=== PATIENT | female | born 1980 | race Caucasian/White ===

== ENCOUNTER 2020-02-11 01:31 | Day surgery (SDC) | payer OTHER, SELFPAY ==
[2020-02-09 08:54] VITALS: BMI 41.5
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
[2020-02-11] VITALS (8 sets, daily range): BP systolic 93–143; BP diastolic 51–86; PULSE 68–86; RESP 12–20; TEMP 36.4–36.9; O2SAT 93–100
[2020-02-11] MEDS: LACTATED RINGERS 1,000 ML 30 ML IV CONT (07:50)
[2020-02-11 08:00] LABS: Hematocrit 40.2 % (37.0-47.0); Hemoglobin 13.1 g/dL (12.0-15.0); Mean Corpuscular HGB Conc 32.6 g/dl (32-36); Mean Corpuscular Hemoglobin 28.1 pg (26-34); Mean Corpuscular Volume 86.3 fl (80-100); Mean Platelet Volume 10.3 fl (7.4-10.4); Platelet Count Result 316 k/mm3 (150-375); Red Blood Count 4.66 M/mm3 (4.2-5.4); Red Cell Distribution Width 13.4 % (11.5-14.5); White Blood Count 10.3 K/mm3 (4.5-10.0)
[2020-02-11 08:13] LABS: Alanine Aminotransferase 17 U/L (4-35); Albumin Level 4.2 g/dL (3.5-5.1); Alkaline Phosphatase 66 U/L (38-126); Aspartate Amino Transferase 22 U/L (14-36); Bilirubin,Total 0.4 mg/dL (0.2-1.3); Blood Urea Nitrogen 20 mg/dL (7-17); Calcium 9.6 mg/dL (8.4-10.2); Carbon Dioxide 30 mmol/L (22-30); Chloride 101 mmol/L (98-107); Estimated CRCL calculation 118 ml/min; Estimated Glomerular Filt Rate > 60; Glucose 96 mg/dL (65-105); Potassium 3.6 mmol/L (3.4-5.0); Sodium 137 mmol/L (137-145)
--- NOTE | 2020-02-11 09:00 | WPDHPUPDATE1 ---
History and Physical Update Update Date/Time: 02/11/20 09:00 History and Physical has been reviewed, including an updated exam of the patient. There are NO changes in the patient's condition. Risks, benefits, and alternatives of Excision of anal skin tag and external hemmorrhoid have been discussed and questions answered. Patient agrees to proceed with procedure.
[2020-02-11] MEDS: ceFAZolin 2 GM/D5W 50 ML 2 GM/50 ML BAG IVPB (09:07)
[2020-02-11] MEDS: BUPIVACAINE/EPINEPHRINE 0.5% 30 ML VIAL INFILTRATE (09:31)
--- NOTE | 2020-02-11 09:59 | P.OP_ITS ---
Procedure Note - Detailed Date of procedure: 02/11/20 Pre-op diagnosis: Anal Skin Tag and Anal Polyp Post-op diagnosis: same Procedure performed: Excision of anal polyp and anal skin tag anterior position Description of procedure: After induction of adequate LMA general anesthesia the patient was rolled onto her right side. The right leg was positioned straight the left leg position bent and we carefully taped the buttocks open such that I could see the anterior part of the anal opening very well. Following this Betadine prep was completed. Following this time-out was confirmed of possible surgery and site of surgery being the anal area. Following this 4 towels were placed around the area a appropriate drape was applied and then in the sitting position with the head light and use I carefully inspected the anal opening the external anal exam there was mild the external hemorrhoids in the left lateral position right anterior position but no other changes small rectal retractor was inserted careful examination all 4 quadrants revealed no significant internal hemorrhoids. Following this the retractor was positioned such that I could see well the anterior edge of the anal opening the enlarged anal tag and the, anal polyp were identified anal polyp coming off the internal portion of anal tag. Local anesthetic was infiltrated underneath both of these an elliptical excision performed. Bovie cautery was used for hemostas is and we undermined the the skin a little bit on each side. Following this a running 3 0 Vicryl suture was started at the innermost and does the incision with an of a run taking every other by taking a little bit of the deep tissues as we ran the skin back to approximate it. This gave a nice linear incision site with the mucosa reapproximated. There was no significant bleeding at the end the procedure. Small piece of Gelfoam was taken soaked with local anesthetic and then rolled and plate position at the anal opening and a folded fluff applied a after releasing the buttocks. Patient tolerated the procedure very well. Patient was moved onto recovery room cart moved to recovery room in good condition. Estimated blood loss approximately 5 cc. Anesthesia: GLMA Surgeon: Patrick Agudelo MD Electronic Court Recorder: ANNE Xavier, OR 1st assist Estimated blood loss (mL): 5 Drains: No Packing: No Pathology: yes (Anal area skin sent for pathology (suspected anal polyp).) Complications: No immediate complications Condition: stable Disposition: PACU Findings: Non inflamed anal skin tag anteriorly with an associated anal polyp.
--- NOTE | 2020-02-11 10:21 | SUR.PHASEI ---
1020 lying to right side for comfort.
== END 2020-02-11 11:55 | disposition home or self-care (01) ==
PROVIDERS: PCP Family Medicine; Visit Provider Surgery
PROC: (CPT 46922; principal; 2020-02-11 09:00)
DX: K62.1 Rectal polyp (principal); K64.4 Residual hemorrhoidal skin tags; I10 Essential (primary) hypertension; G47.33 Obstructive sleep apnea (adult) (pediatric); E66.01 Morbid (severe) obesity due to excess calories; Z68.41 Body mass index [BMI] 40.0-44.9, adult
CPT/HCPCS: 46922; 36415; 80053; 85027; 88305; A9270; J0690; J1100; J2250; J2405; J2704; J3010; J7120

== ENCOUNTER 2020-07-29 14:45 | Outpatient (RCR) | payer OTHER, SELFPAY ==
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
== END 2020-08-08 11:53 | disposition home or self-care (01) ==
LOC: ANHPT 14:45
PROVIDERS: PCP Family Medicine
DX: Z47.1 Aftercare following joint replacement surgery (principal); Z96.642 Presence of left artificial hip joint
CPT/HCPCS: 97110; 97112; 97140; 97162; 97530

== ENCOUNTER 2020-09-15 15:30 | Outpatient (RCR) | payer OTHER, SELFPAY ==
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
== END 2020-09-16 12:20 | disposition home or self-care (01) ==
LOC: ANHPT 15:30
PROVIDERS: PCP Family Medicine
DX: Z47.1 Aftercare following joint replacement surgery (principal); Z96.642 Presence of left artificial hip joint; M25.561 Pain in right knee; M25.562 Pain in left knee
CPT/HCPCS: 97110; 97112; 97140; 97530

== ENCOUNTER → 2020-09-21 16:18 | Outpatient (CLI) | payer OTHER, SELFPAY ==
--- NOTE | ~2020-09-21 | XR_ITS ---
EXAMINATION: XR foot RT min 3V DATE: 09/21/2020 16:47 INDICATION: Right foot pain. TECHNIQUE: 4 views of right foot were obtained. COMPARISON: Right foot radiographs 11/04/2015 FINDINGS: Bone alignment is normal. No fracture. There is mild osteoarthritis of first metatarsophala ngeal joint and some of the midfoot joints. There are enthesophytes at the posterior and plantar aspe cts of calcaneal tuberosity. IMPRESSION: 1. Mild polyarticular osteoarthritis. Reviewed, dictated and finalized at location A.
== END ==
PROVIDERS: PCP Family Medicine; Visit Provider Nurse Practitioner Family
DX: M19.071 Primary osteoarthritis, right ankle and foot (principal); R26.89 Other abnormalities of gait and mobility
CPT/HCPCS: 73630

== ENCOUNTER 2021-05-24 18:12 | Emergency (ER) | payer OTHER, SELFPAY ==
--- NOTE | ~2021-05-24 | XR_ITS ---
EXAMINATION: XR chest 1V portable EXAM DATE: 05/24/2021 18:53 INDICATION: Cough, burning nose, drainage. Lightheadedness. Hypertension. Symptoms a week. TECHNIQUE: Portable AP frontal chest x-ray was obtained. Comparison is made to prior examination from 12/05/2015. FINDINGS: The lungs are clear. There are no pleural effusions. The cardiomediastinal silhouette is within normal limits. There is no pneumothorax suspected. The bones and soft tissues are unremarkab le. IMPRESSION: No acute cardiopulmonary findings. Reviewed, dictated and finalized at location A.
[2021-05-24 18:29] VITALS: BP 149/85; PULSE 112; RESP 12; TEMP 37.3; O2SAT 99
[2021-05-24 18:49] VITALS: O2SAT 98
[2021-05-24 19:02] VITALS: BP 138/81; PULSE 109; RESP 20; O2SAT 97
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
[2021-05-24 20:09] VITALS: BP 134/85; PULSE 82; RESP 16; TEMP 37.1; O2SAT 98
[2021-05-25 18:05] LABS: SARS-CoV-2 RNA PCR Positive
== END 2021-05-24 20:10 | disposition home or self-care (01) ==
PROVIDERS: Emergency Medicine Emergency Medical Services; Emergency Provider Emergency Medicine; PCP Family Medicine
DX: U07.1 COVID-19 (principal); J06.9 Acute upper respiratory infection, unspecified; I10 Essential (primary) hypertension
CPT/HCPCS: 71045; 99283; C9803; U0003; U0005

== ENCOUNTER 2021-11-11 10:49 | Outpatient (CLI) | payer OTHER, SELFPAY ==
[2021-11-11 12:10] LABS: Free T4 Free Thyroxine 0.84 ng/mL (0.78-2.19)
[2021-11-11 12:14] LABS: Thyroid Stimulating Hormone 0.887 uIU/mL (0.465-4.680)
[2021-11-16 00:43] LABS: Insulin Level Total 16.4 uIU/mL (<=19.6)
[2021-11-16 15:12] LABS: DHEA-Sulfate 51 mcg/dL (23-266)
[2021-11-16 22:46] LABS: Prolactin 8.9 ng/mL (***)
== END 2021-11-11 10:50 | disposition home or self-care (01) ==
LOC: ANHLAB 10:52
PROVIDERS: PCP Family Medicine; Visit Provider Nurse Practitioner
DX: N92.6 Irregular menstruation, unspecified (principal)
CPT/HCPCS: 36415; 82627; 83036; 83525; 84144; 84146; 84402; 84439; 84443

== ENCOUNTER → 2022-01-09 08:11 | Outpatient (CLI) | payer OTHER, SELFPAY ==
--- NOTE | ~2022-01-09 | MMUS_ITS ---
EXAMINATION: MM diagnostic ronald BI w jorge, US breast BI complete HISTORY: Breast pain. TECHNIQUE: Additional 3-D tomosynthesis images of the breasts were performed and synthetic 2-D images were generated. CAD analysis was submitted and interpreted. High resolution bilateral complete breas t ultrasound was performed. COMPARISON: None BREAST PARENCHYMAL COMPOSITION: The breasts are heterogenously dense, which may obscure small masses FINDINGS: MAMMOGRAPHIC FINDINGS: No discrete masses or architectural distortion. There are benign-appearing breast calcifications. The re are probable benign bilateral breast asymmetries. ULTRASOUND: Complete bilateral US of all 4 quadrants of the breasts and retroareolar region was reviewed. Diffuse ly heterogeneous echotexture without focal mass. There are mildly prominent ducts throughout the cassie sts. IMPRESSION: 1. Probable benign asymmetries of both breasts without sonographic correlate. 2. Recommend 6 month follow-up diagnostic bilateral mammogram. BI-RADS category 3, probably benign findings. Reviewed, dictated and finalized at location A. D [employer]IST IMPRESSION: 1. Probable benign asymmetries of both breasts without sonographic correlate. 2. Recommend 6 month follow-up diagnostic bilateral mammogram. BI-RADS category 3, probably benign findings.
== END ==
PROVIDERS: Visit Provider Nurse Practitioner
DX: N64.4 Mastodynia (principal)
CPT/HCPCS: 76641; 77062; 77066; G0279

== ENCOUNTER 2022-04-10 17:03 | Outpatient (CLI) | payer OTHER, SELFPAY ==
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
== END 2022-04-10 17:04 ==
PROVIDERS: PCP Nurse Practitioner Family; Visit Provider Nurse Practitioner Family
DX: M16.12 Unilateral primary osteoarthritis, left hip (principal); Z87.81 Personal history of (healed) traumatic fracture
CPT/HCPCS: 73521

== ENCOUNTER 2022-04-11 07:04 | Outpatient (CLI) | payer OTHER, SELFPAY ==
--- NOTE | ~2022-04-11 | MR_ITS ---
EXAMINATION: MR lumbar spine wo con DATE: 04/11/2022 07:39 INDICATION: Low back pain. Left leg numbness. TECHNIQUE: Magnetic resonance imaging (MRI) of the lumbar spine was performed without intravenous con trast. Sequences included sagittal T2-weighted FSE, sagittal T2-weighted FS FSE, sagittal T1-weighted FSE, and axial T2-weighted FSE. COMPARISON: Lumbar spine radiographs 10/17/2018 FINDINGS: There is 4 degrees dextrocurvature of lumbar spine. There is mild chronic anterior wedging of T12 vertebral body. Intervertebral disc heights are normal. At T11, there is increased T2-weighted signal intensity in the spinal cord posteriorly. The conus medullaris is at L2. The following disc l evels are specifically discussed: L1-L2: The disc does not extend beyond the endplate margin. There is mild bilateral facet joint osteo arthritis. There is no neural foraminal stenosis. There is no central canal stenosis. L2-L3: The disc does not extend beyond the endplate margin. There is mild bilateral facet joint osteo arthritis. There is no neural foraminal stenosis. There is no central canal stenosis. L3-L4: The disc does not extend beyond the endplate margin. There is mild bilateral facet joint osteo arthritis. There is no neural foraminal stenosis. There is no central canal stenosis. L4-L5: There is a right foraminal protrusion. There is severe bilateral facet joint osteoarthritis. T here is mild right neural foraminal stenosis. There is no central canal stenosis. L5-S1: The disc is bulging with superimposed right central extrusion. There is moderate bilateral fac et joint osteoarthritis. There is mild left neural foraminal stenosis. There is mild central canal st enosis. IMPRESSION: 1. Increased T2-weighted signal intensity in the spinal cord at T11 suspicious for myelomalacia. [facility] spine MRI without and with contrast is recommended. 2. Mild lumbar spondylosis. Reviewed, dictated and finalized at location B. IMPRESSION: 1. Increased T2-weighted signal intensity in the spinal cord at T11 suspicious for myelomalacia. Thoracic spine MRI without and with contrast is recommended. 2. Mild lumbar spondylosis.
== END 2022-04-11 07:05 ==
LOC: MICIMG 07:05
PROVIDERS: PCP Family Medicine; Visit Provider Nurse Practitioner Family
DX: R20.2 Paresthesia of skin (principal); M47.896 Other spondylosis, lumbar region
CPT/HCPCS: 72148

== ENCOUNTER 2022-06-07 16:48 | Emergency (ER) | payer OTHER, SELFPAY ==
[2022-06-07 16:59] VITALS: BP 153/103; PULSE 91; RESP 18; TEMP 37.3; O2SAT 99
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
== END 2022-06-07 18:10 | disposition home or self-care (01) ==
PROVIDERS: Emergency Provider Nurse Practitioner; PCP Family Medicine
DX: H66.91 Otitis media, unspecified, right ear (principal); I10 Essential (primary) hypertension; E78.2 Mixed hyperlipidemia; G47.33 Obstructive sleep apnea (adult) (pediatric); E66.01 Morbid (severe) obesity due to excess calories; Z68.42 Body mass index [BMI] 45.0-49.9, adult; Z86.16 Personal history of COVID-19
CPT/HCPCS: 99213; G0463

== ENCOUNTER 2022-06-08 07:17 | Outpatient (CLI) | payer OTHER, SELFPAY ==
--- NOTE | ~2022-06-08 | MR_ITS ---
EXAMINATION: MR brain/brain stem wo con DATE: 06/08/2022 07:57 INDICATION: Demyelination. Bilateral foot numbness. TECHNIQUE: Magnetic resonance imaging (MRI) of the brain and brainstem was performed without intraven ous contrast. COMPARISON: None. FINDINGS: There is no intracranial hemorrhage, acute infarction, or abnormal intracranial mass lesion . The ventricles are normal in size. There is a trace right mastoid effusion. The orbits are normal. The paranasal sinuses are clear. IMPRESSION: 1. Normal brain. Reviewed, dictated and finalized at location A. IMPRESSION: 1. Normal brain.
== END 2022-06-08 07:18 ==
PROVIDERS: PCP Family Medicine; Visit Provider Nurse Practitioner Family
DX: G37.9 Demyelinating disease of central nervous system, unspecified (principal)
CPT/HCPCS: 70551

== ENCOUNTER 2022-09-05 13:32 | Outpatient (CLI) | payer OTHER, SELFPAY ==
--- NOTE | ~2022-09-05 | MR_ITS ---
EXAMINATION: MR brain/brain stem wo/w con DATE: 09/05/2022 14:54 INDICATION: Demyelinating disease. TECHNIQUE: Magnetic resonance imaging (MRI) of the brain and brainstem was performed without and with 20 mL MultiHance intravenous contrast. COMPARISON: Brain MRI 06/08/2022 FINDINGS: There is no intracranial hemorrhage, acute infarction, or abnormal intracranial mass lesion . The ventricles are normal in size. There is mild mucosal thickening in the ethmoid sinuses. The orb its are normal. There is a trace right mastoid effusion. IMPRESSION: 1. Normal brain. Reviewed, dictated and finalized at location A. IMPRESSION: 1. Normal brain.
--- NOTE | ~2022-09-05 | MR_ITS ---
EXAMINATION: MR cervical spine wo/w con DATE: 09/05/2022 14:55 INDICATION: Demyelinating disease. TECHNIQUE: Magnetic resonance imaging (MRI) of the cervical spine was performed without and with 20 m L MultiHance intravenous contrast. COMPARISON: None FINDINGS: There is hypolordosis of cervical spine. Vertebral body heights and intervertebral disc hei ghts are normal. The spinal cord signal intensity is normal. The following disc levels are specifical ly discussed: C2-C3: The disc does not extend beyond the endplate margin. There is mild left uncovertebral joint os teoarthritis. There is mild right and moderate left facet joint osteoarthritis. There is mild left ne ural foraminal stenosis. There is no central canal stenosis. C3-C4: The disc does not extend beyond the endplate margin. There is no uncovertebral joint osteoarth ritis. There is mild bilateral facet joint osteoarthritis. There is no neural foraminal stenosis. The re is no central canal stenosis. C4-C5: There is a central protrusion. There is no uncovertebral joint osteoarthritis. There is no fac et joint osteoarthritis. There is no neural foraminal stenosis. There is mild central canal stenosis. C5-C6: There is a central protrusion. There is no uncovertebral joint osteoarthritis. There is mild l eft facet joint osteoarthritis. There is no neural foraminal stenosis. There is mild central canal st enosis. C6-C7: The disc does not extend beyond the endplate margin. There is no uncovertebral joint osteoarth ritis. There is no facet joint osteoarthritis. There is no neural foraminal stenosis. There is no iveth tral canal stenosis. C7-T1: The disc does not extend beyond the endplate margin. There is no uncovertebral joint osteoarth ritis. There is moderate bilateral facet joint osteoarthritis. There is no neural foraminal stenosis. There is no central canal stenosis. IMPRESSION: 1. Normal spinal cord. 2. Mild cervical spondylosis. Reviewed, dictated and finalized at location A.
== END 2022-09-05 13:33 | disposition home or self-care (01) ==
LOC: ANHIMG 13:34
PROVIDERS: PCP Family Medicine; Visit Provider Student in an Organized Health Care Education/Training Program
DX: R93.89 Abnormal findings on diagnostic imaging of other specified body structures (principal); R20.2 Paresthesia of skin; M47.812 Spondylosis without myelopathy or radiculopathy, cervical region
CPT/HCPCS: 70553; 72156; A9577

== ENCOUNTER 2022-10-04 03:23 | Outpatient (CLI) | payer OTHER, SELFPAY ==
[2022-09-27 15:45] VITALS: BMI 49.6
--- NOTE | 2022-09-27 15:46 | PC.NURSE ---
Pre Radiology instructions Report to the Outpatient Waiting Room, entrance under the green pavilion located off [facility], at time 0830 on date 10/04/22. Procedure Time: 1030. YOU MAY BE MONITORED AT HOSPITAL FOR UP TO 4 HOURS AFTER YOUR PROCEDURE. One visitor will be allowed to accompany the patient into the hospital. The visitor will be instructed to remain with patient at all times or leave the building due to restrictions. We will allow the visitor to come back to the postoperative area when patient is ready. NO children visitors allowed at this time. You and your visitor will be asked to self-screen and do not enter if you have any COVID symptoms. A mask is required within the hospital. Patients are to have no food or drink 6 hours prior to procedure time Driving will be restricted after the procedure, you must have a person to drive you home. Labs will be drawn in preop area and once reviewed, you will be taken to radiology area for procedure. When the procedure is completed, you will be taken to outpatient where you will be monitored for several hours. You may have one visitor in this area. Other than holding anti-coagulants, patient may take other medication(s) as scheduled. Prior to your appointment date patients are instructed to hold anti-coagulants after discussing with ordering provider to stop. If unable to discontinue anti-coagulants please notify radiologist. No aspirin or warfarin (Coumadin) for 7 days prior to the procedure. No clopidogrel (Plavix), ticagrelor (Brilinta), prasugrel (Effient) or dabigatran (Pradaxa) for 5 days prior to the procedure. No rivaroxaban (Xarelto), apixaban (Eliquis), dipyridamole (Aggrenox or Persantine) or cilostazol (Pletal) for 2 days prior to the procedure. Medications to discontinue per physician: N/A Date to take last dose: N/A Please leave all valuables, including medications, at home the day of procedure. The hospital will not accept responsibility for valuables. Wear comfortable, loose fitting clothing. Follow any additional instructions given to you from ordering provider. Telephone instructions given to PAIGE RODRIGUEZ and asked if any additional questions and then verbalized understanding. Patient advised to call scheduling provider office or registration scheduling [phone] if any additional questions.
[2022-10-04] VITALS (7 sets, daily range): BP systolic 114–134; BP diastolic 64–78; PULSE 60–87; RESP 12–20; TEMP 36.6; O2SAT 99
--- NOTE | ~2022-10-04 | XR_ITS ---
EXAMINATION: XR lumbar puncture diagnostic DATE: 10/04/2022 11:20 INDICATION: Concern for demyelinating disease. TECHNIQUE: The procedure including the risks and benefits was discussed with the patient. Risks discu ssed included spinal headache, cerebrospinal fluid leak, bleeding, and infection. The patient underst ood the risks and agreed to proceed. A timeout was performed to verify the patient's name, date of , and procedure to be performed. The skin overlying the L3-L4 level was prepped and draped in usual sterile fashion. Subcutaneous 1% lidocaine was used for local anesthesia. A 6 inch 22 gauge s perry needle was advanced under fluoroscopic guidance. The needle was removed and the entry site was cleaned and dressed. There were no immediate complications. A total of 3 fluoroscopic image(s) were obtained. Additional lateral radiographs was also obtained. The amount of fluoroscopy time used durin g this procedure was 1.0 minutes. The patient was returned to the floor. FINDINGS: Real-time fluoroscopy demonstrates the needle at the L3-L4 level. Opening pressure was slig htly elevated at 27 cm water. (Normal range is variably defined as 6-20 cm water and up to 25 cm wate r in obese patients. Pressure >25 cm water is one of the modified Dandy criteria for idiopathic intra cranial hypertension). 14 mL of clear, colorless fluid was collected in 4 tubes. IMPRESSION: 1. Successful fluoro-guided lumbar puncture. 2. Mildly elevated opening pressure of 27 cm water which meets Dandy criteria for idiopathic intracra nial hypertension. Reviewed, dictated and finalized at location A. [employer]IVE EXHA[employer] EMISSIONS TECHNICIAN IMPRESSION: 1. Successful fluoro-guided lumbar puncture. 2. Mildly elevated opening pressure of 27 cm water which meets Dandy criteria f or idiopathic intracranial hypertension.
[2022-10-04 09:03] LABS: Mean Platelet Volume 10.4 fl (7.4-10.4); Platelet Count Result 308 k/mm3 (150-375)
[2022-10-04 09:04] LABS: Glucose Point of Care 102 mg/dl (65-105)
[2022-10-04 09:15] LABS: Prothrombin Time 12.8 Seconds (11.1-14.7)
[2022-10-04 12:21] LABS: Total Protein CSF 68 mg/dL (12-60)
[2022-10-04 12:49] LABS: CSF source CSF
[2022-10-04 12:50] LABS: Appearance CSF Clear (Clear); Color CSF Colorless (Colorless); Neutrophils CSF 0 % (0-6); Nucleated Cell CSF 31 /uL (0-5); Red Blood Cell CSF 0 (0-2)
[2022-10-04 12:51] LABS: Lymphocytes CSF 100 % (40-80)
[2022-10-04 14:38] LABS: Glucose CSF 52 mg/dL (40-70)
[2022-10-15 14:44] LABS: Albumin, CSF 34.2 mg/dL (8.0-42.0); Albumin, Serum 4.1 g/dL (3.5-5.2); IgG Index, CSF 0.51 (<0.66); IgG, CSF 5.1 mg/dL (0.8-7.7); Immunoglobulin G, Serum 1210 mg/dL (600-1640); Myelin Basic Protein, CSF <2.0 mcg/L (<=4.0); Synthesis Rate IgG, CSF -1.3 mg/24 h (-9.9-3.3)
== END 2022-10-04 13:15 | disposition home or self-care (01) ==
PROVIDERS: PCP Family Medicine; Referring Provider Student in an Organized Health Care Education/Training Program; Visit Provider Radiology Diagnostic Radiology
PROC: 009U3ZZ Drainage of Spinal Canal, Percutaneous Approach (ICD-10-PCS; CPT 62328; principal; 2022-10-04 10:30)
DX: R93.89 Abnormal findings on diagnostic imaging of other specified body structures (principal)
CPT/HCPCS: 36415; 62328; 82040; 82042; 82784; 82945; 82948; 83873; 83916; 84157; 85049; 85610; 87070; 89051

== ENCOUNTER 2022-11-01 06:59 | Outpatient (CLI) | payer OTHER, SELFPAY ==
[2022-11-01 09:09] LABS: Vitamin D 25 Hydroxy 28.4 ng/mL
[2022-11-01 10:50] LABS: Hemoglobin A1C 6.3 % (<5.7)
[2022-11-01 10:59] LABS: Thyroid Stimulating Hormone 0.101 uIU/mL (0.465-4.680)
[2022-11-01 11:48] LABS: Folic Acid 14.1 ng/mL (2.76->20)
[2022-11-05 15:45] LABS: Vitamin B6 11.2 ng/mL (2.1-21.7)
[2022-11-06 16:34] LABS: Alpha-Tocopherol 16.9 mg/L (5.7-19.9); Beta-Gamma Tocopherol 1.9 mg/L (<=4.3)
== END 2022-11-01 07:00 | disposition home or self-care (01) ==
PROVIDERS: PCP Family Medicine; Referring Provider Nurse Practitioner; Visit Provider Student in an Organized Health Care Education/Training Program
DX: N92.6 Irregular menstruation, unspecified (principal); G62.9 Polyneuropathy, unspecified; R93.89 Abnormal findings on diagnostic imaging of other specified body structures
CPT/HCPCS: 36415; 82306; 82525; 82607; 82746; 83036; 84207; 84443; 84446; 86334; 86335

== ENCOUNTER 2022-11-07 14:31 | Emergency (ER) | payer OTHER, SELFPAY ==
[2022-11-07 14:47] VITALS: BP 121/72; PULSE 94; RESP 20; TEMP 36.8; O2SAT 94
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
[2022-11-07 15:51] LABS: Glucose Point of Care 114 mg/dl (65-105)
== END 2022-11-07 16:00 | disposition home or self-care (01) ==
PROVIDERS: Emergency Provider Nurse Practitioner Family; PCP Family Medicine
DX: R42 Dizziness and giddiness (principal); T38.0X5A Adverse effect of glucocorticoids and synthetic analogues, initial encounter; Z86.16 Personal history of COVID-19; I10 Essential (primary) hypertension; E78.2 Mixed hyperlipidemia; E66.01 Morbid (severe) obesity due to excess calories; Z68.42 Body mass index [BMI] 45.0-49.9, adult
CPT/HCPCS: 81003; 82948; 87804; 99213; G0463

== ENCOUNTER 2022-11-27 16:48 | Outpatient (CLI) | payer OTHER, SELFPAY ==
[2022-11-27 19:09] LABS: Free T4 Free Thyroxine 0.99 ng/mL (0.78-2.19)
[2022-12-07 15:50] LABS: Reference Lab Test Result NEGATIVE
[2022-12-13 13:38] LABS: Reference Lab Test Result Negative
== END 2022-11-27 16:49 | disposition home or self-care (01) ==
PROVIDERS: Nurse Practitioner Family; PCP Family Medicine; Visit Provider Student in an Organized Health Care Education/Training Program
DX: R79.89 Other specified abnormal findings of blood chemistry (principal); R93.89 Abnormal findings on diagnostic imaging of other specified body structures
CPT/HCPCS: 36415; 84439; 86052; 86362

== ENCOUNTER 2022-11-29 08:53 | Outpatient (CLI) | payer OTHER, SELFPAY | END 2022-11-29 08:54 | disposition home or self-care (01) | PROVIDERS: PCP Family Medicine; Visit Provider Nurse Practitioner Family | DX: R79.89 Other specified abnormal findings of blood chemistry (principal) | CPT/HCPCS: 36415; 84436; 84443 ==

== ENCOUNTER 2023-01-24 07:23 | Outpatient (CLI) | payer OTHER, SELFPAY ==
[2023-01-24 08:26] LABS: Cholesterol 175 mg/dL (0-200); HDL Direct 25 mg/dL; Triglycerides 194 mg/dL (<150)
[2023-01-24 08:37] LABS: LDL Cholesterol Direct 102 mg/dL
== END 2023-01-24 07:24 | disposition home or self-care (01) ==
PROVIDERS: PCP Family Medicine; Visit Provider Internal Medicine
DX: R73.03 Prediabetes (principal); E66.01 Morbid (severe) obesity due to excess calories
CPT/HCPCS: 36415; 80061

== ENCOUNTER 2023-01-25 07:36 | Outpatient (NON) | payer OTHER, SELFPAY ==
[2023-02-01 16:03] LABS: Cortisol, Saliva <0.03 mcg/dL
[2023-02-01 16:03] LABS: Cortisol, Saliva 0.03 mcg/dL
== END 2023-01-25 07:37 | disposition home or self-care (01) ==
PROVIDERS: PCP Family Medicine; Visit Provider Internal Medicine
DX: R73.03 Prediabetes (principal); E66.01 Morbid (severe) obesity due to excess calories
CPT/HCPCS: 82530

== ENCOUNTER → 2023-01-30 09:19 | Outpatient (CLI) | payer OTHER, SELFPAY ==
--- NOTE | ~2023-01-30 | MM_ITS ---
EXAMINATION: MM diagnostic ronald BI w jorge HISTORY: Overdue follow-up for probably benign breast asymmetries TECHNIQUE: Craniocaudal, mediolateral, and mediolateral oblique 3-D tomosynthesis images of the breas ts were performed and synthetic 2-D images were generated. CAD analysis was submitted and interpreted . COMPARISON: 01/09/2022 BREAST PARENCHYMAL COMPOSITION: The breasts are heterogeneously dense, which may obscure small masses . FINDINGS: No suspicious mass, calcification, or architectural distortion are identified in either nina ast to suggest malignancy. There has been no suspicious interval change. IMPRESSION: 1. No mammographic evidence of malignancy. 2. Recommend routine screening mammography in one year. BI-RADS Category 1: Negative Reviewed, dictated and finalized at location A. OIDERY SPECIALIST
== END ==
PROVIDERS: PCP Family Medicine; Visit Provider Obstetrics & Gynecology Gynecology
DX: N64.59 Other signs and symptoms in breast (principal)
CPT/HCPCS: 77062; 77066; G0279

== ENCOUNTER 2023-10-08 07:33 | Outpatient (CLI) | payer OTHER, SELFPAY ==
[2023-10-08 08:33] LABS: Hemoglobin A1C 5.4 % (<5.7)
[2023-10-08 08:39] LABS: Free T4 Free Thyroxine 0.82 ng/mL (0.78-2.19)
[2023-10-12 13:47] LABS: Insulin Level Total 33.2 uIU/mL (<=18.4)
== END 2023-10-08 07:34 | disposition home or self-care (01) ==
LOC: ANHLAB 07:35
PROVIDERS: Visit Provider Nurse Practitioner
DX: N93.8 Other specified abnormal uterine and vaginal bleeding (principal)
CPT/HCPCS: 36415; 83036; 83525; 84439; 84443

== ENCOUNTER → 2023-10-08 10:45 | Outpatient (CLI) | payer OTHER, SELFPAY ==
--- NOTE | ~2023-10-08 | US_ITS ---
Pelvic ultrasound. Clinical History: Abnormal uterine bleeding Technique: Realtime transabdominal and transvaginal scanning of the pelvis was performed. Color flow Doppler and Doppler spectral analysis were performed. Findings: The uterus is anteverted, and measures 9.0 x 4.1 x 4.4 cm. The endometrial stripe has a th ickness of 5 mm. No myometrial focal mass is identified. Cervical nabothian cysts are present. The right ovary measures 2.5 x 1.8 x 3.8 cm. No significant right ovarian or adnexal mass is seen. The left ovary measures 2.9 x 2.4 x 3.3 cm. No significant left ovarian or adnexal mass is seen. There is no evidence of free fluid in the cul de sac. Impression: Unremarkable pelvic ultrasound. Reviewed, dictated and finalized at [facility]. Y GUN REPAIRER Impression: Unremarkable pelvic ultrasound.
== END ==
PROVIDERS: PCP Family Medicine; Visit Provider Nurse Practitioner
DX: N93.8 Other specified abnormal uterine and vaginal bleeding (principal)
CPT/HCPCS: 76830

== ENCOUNTER 2024-02-24 16:01 | Outpatient (CLI) | payer OTHER, SELFPAY ==
--- NOTE | ~2024-02-24 | MM_ITS ---
EXAMINATION: MM screening ronald BI w jorge HISTORY: Screening TECHNIQUE: Craniocaudal and mediolateral oblique 3-D tomosynthesis images were obtained and synthetic 2-D images were generated. CAD analysis was submitted and interpreted. COMPARISON: Comparison to multiple prior studies sequentially, with oldest reviewed study dated 01/09. BREAST PARENCHYMAL COMPOSITION: Not dense: There are scattered areas of fibroglandular density. FINDINGS: New left subareolar asymmetry. The right breast is stable without evidence for malignancy. IMPRESSION: 1. New left breast subareolar asymmetry. 2. Additional mammographic views and possible breast ultrasound are recommended. BI-RADS Category 0: Incomplete: Needs additional imaging evaluation. Reviewed, dictated and finalized at location A. IMPRESSION: 1. New left breast subareolar asymmetry. 2. Additional mammographic views and possible breast ultrasound are recommended . BI-RADS Category 0: Incomplete: Needs additional imaging evaluation.
== END 2024-02-24 16:02 ==
PROVIDERS: PCP Obstetrics & Gynecology Gynecology; Visit Provider Nurse Practitioner
DX: Z12.31 Encounter for screening mammogram for malignant neoplasm of breast (principal); R92.8 Other abnormal and inconclusive findings on diagnostic imaging of breast
CPT/HCPCS: 77063; 77067

== ENCOUNTER 2024-03-27 08:24 | Outpatient (CLI) | payer OTHER, SELFPAY ==
--- NOTE | ~2024-03-27 | MMUS_ITS ---
EXAMINATION: MM diagnostic ronald LT w jorge, US breast LT complete HISTORY: Left subareolar breast asymmetry reported on February 24, 2024 screening mammogram examination TECHNIQUE: Additional 3-D tomosynthesis images of the left breast were performed and synthetic 2-D im ages were generated. CAD analysis was submitted and interpreted. High resolution complete left breast ultrasound examination coronal 4 quadrants and subareolar area was performed. COMPARISON: February 24, 2024, January 30, 2023 bilateral screening mammogram examinations January 09, 2022 bilateral diagnostic mammogram and complete bilateral breast ultrasound examination FINDINGS: MAMMOGRAPHIC FINDINGS: No suspicious mass, architectural distortion, malignant calcification, skin thickening or retraction is evident on these additional diagnostic mammographic views. However, the heterogeneously dense, may obscure masses. Ultrasound examination was performed. ULTRASOUND: No suspicious mass or shadowing is detected. IMPRESSION: 1. No evidence of malignancy 2. Routine annual mammographic screening is recommended. BI-RADS Category 1: Negative Reviewed, dictated and finalized at location A. IMPRESSION: 1. No evidence of malignancy 2. Routine annual mammographic screening is recommended. BI-RADS Category 1: Negative
== END 2024-03-27 08:25 ==
PROVIDERS: PCP Obstetrics & Gynecology Gynecology; Visit Provider Obstetrics & Gynecology Gynecology
DX: R92.8 Other abnormal and inconclusive findings on diagnostic imaging of breast (principal)
CPT/HCPCS: 76641; 77061; 77065; G0279

== ENCOUNTER 2024-05-21 13:38 | Outpatient (CLI) | payer OTHER, SELFPAY ==
--- NOTE | ~2024-05-21 | MR_ITS ---
EXAMINATION: MR ankle LT wo/w con DATE: 05/21/2024 15:54 INDICATION: Left ankle pain TECHNIQUE: Magnetic resonance imaging (MRI) of the left ankle was performed without and with 20 mL Mu ltihance intravenous contrast. Sequences included axial, sagittal and coronal PD-weighted FSE and PD- weighted FS FSE, axial T1-weighted FSE, axial T1-weighted FS FSE, sagittal fluid sensitive FSE STIR a nd postcontrast axial and coronal T2-weighted FS FSE. COMPARISON: None. FINDINGS: Medial ankle ligaments: There is thickening and mild increased signal of the anterior tibiotalar portion of the deep deltoid ligament with heterotopic ossification at its tibial origin consistent with sequela of chronic sprain . The more posterior deep deltoid ligament, superficial deltoid ligaments as well as the spring ligam ent are normal. Lateral ankle ligaments: The anterior and posterior inferior tibiofibular ligaments are normal. The anterior talofibular, calc aneofibular and posterior talofibular ligaments are normal. Tendons: Achilles tendon is normal. The peroneus longus and brevis tendons are normal. The tibialis anterior a nd extensor hallucis longus and extensor digitorum longus tendons are normal. The tibialis posterior, flexor digitorum longus and flexor hallucis longus tendons are normal. Plantar fascia: Moderate-sized plantar calcaneal enthesophytes at the calcaneal origin of the otherwise normal planta r aponeurosis. Bones/other: Bone alignment is normal. No fracture or pathologic marrow replacing process. Mild osteoarthritis at the left ankle and multiple joints in the mid and hindfoot. There is small region of partial-thicknes s chondral ulceration along the lateral rim of the lateral talar dome. Small region of high-grade cho ndromalacia along the proximal articular surface of the cuboid with subarticular cystlike changes. Li sfranc ligament complex is normal. Fluid: Physiologic amount fluid in the joint spaces. No abnormal fluid collections. IMPRESSION: 1. Mild osteoarthritis at the calcaneocuboid articulation but with high-grade chondral malacia with s ubarticular cystlike changes at the proximal articular surface of the cuboid. 2. Scarring and small amount of heterotopic ossification at the anterior deep deltoid ligament consis tent with sequela of chronic sprain. 3. Chronic plantar enthesopathy. Reviewed, dictated and finalized at location B. IMPRESSION: 1. Mild osteoarthritis at the calcaneocuboid articulation but with high-grade c hondral malacia with subarticular cystlike changes at the proximal articular tyler rface of the cuboid. 2. Scarring and small amount of heterotopic ossification at the anterior deep d eltoid ligament consistent with sequela of chronic sprain. 3. Chronic plantar enthesopathy.
--- NOTE | ~2024-05-21 | MR_ITS ---
EXAMINATION: MR ankle RT wo/w con DATE: 05/21/2024 15:54 INDICATION: Right ankle pain. TECHNIQUE: Magnetic resonance imaging (MRI) of the left ankle was performed without and with 20 mL Mu ltihance intravenous contrast utilizing the same contrast bolus as for the right ankle MRI. Sequences included axial, sagittal and coronal PD-weighted FSE and PD-weighted FS FSE, axial T1-weighted FSE, axial T1-weighted FS FSE, sagittal fluid sensitive FSE STIR and postcontrast axial and coronal T2-preeti ghted FS FSE. COMPARISON: None. FINDINGS: Medial ankle ligaments: There is thickening of the anterior tibiotalar component of the deep deltoid ligament with small hete rotopic ossicle along the ligament consistent with sequela of chronic sprain. The more posterior deep deltoid ligament as well as the superficial deltoid ligament as well as the spring ligament are norm al. Lateral ankle ligaments: The anterior and posterior inferior tibiofibular ligaments are normal. The anterior talofibular, calc aneofibular and posterior talofibular ligaments are normal. Tendons: Small enthesophyte at the calcaneal insertion of the otherwise normal Achilles tendon. The peroneus l ongus and brevis tendons are normal. The tibialis anterior and extensor hallucis longus and extensor digitorum longus tendons are normal. The tibialis posterior, flexor digitorum longus and flexor hallu cis longus tendons are normal. Plantar fascia: Small plantar calcaneal spur at the origin of the plantar aponeurosis. Mild thickening and mild incre ased signal at the proximal aspect of the tibial component of the plantar aponeurosis without associa luis marrow edema surrounding soft tissue edema to suggest acute plantar fasciitis consistent with mil d chronic enthesopathy. Bones/other: Bone alignment is normal. No acute fracture or pathologic marrow replacing process. Fluid: Physiologic amount fluid in the joint spaces. No tenosynovitis or other abnormal fluid collections. M ild subcutaneous edema about the ankle both medially and laterally. IMPRESSION: 1. Scarring and small heterotopic ossicle along the anterior deep deltoid ligament consistent with se quela of chronic sprain. 2. Mild chronic plantar enthesopathy with additional small enthesophytes at the calcaneal insertion o f the distal Achilles tendon. Reviewed, dictated and finalized at location B. IMPRESSION: 1. Scarring and small heterotopic ossicle along the anterior deep deltoid ligam ent consistent with sequela of chronic sprain. 2. Mild chronic plantar enthesopathy with additional small enthesophytes at the calcaneal insertion of the distal Achilles tendon.
== END 2024-05-21 13:39 | disposition home or self-care (01) ==
PROVIDERS: PCP Family Medicine; Visit Provider Podiatrist Foot & Ankle Surgery
DX: M77.31 Calcaneal spur, right foot (principal); M77.32 Calcaneal spur, left foot
CPT/HCPCS: 73723; A9577

== ENCOUNTER 2024-07-03 13:28 | Emergency (ER) | payer OTHER, SELFPAY ==
[2024-07-03 13:38] VITALS: BP 147/97; PULSE 83; RESP 20; TEMP 36.9; O2SAT 98
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
== END 2024-07-03 13:52 | disposition short-term general hospital (02) ==
PROVIDERS: Emergency Provider Nurse Practitioner; PCP Family Medicine
DX: N93.9 Abnormal uterine and vaginal bleeding, unspecified (principal); I10 Essential (primary) hypertension; E78.2 Mixed hyperlipidemia; E66.01 Morbid (severe) obesity due to excess calories; Z68.42 Body mass index [BMI] 45.0-49.9, adult; Z86.16 Personal history of COVID-19
CPT/HCPCS: 99212; G0463

== ENCOUNTER 2024-07-03 14:16 | Emergency (ER) | payer OTHER, SELFPAY ==
[2024-07-03 14:23] VITALS: BP 158/86; PULSE 91; RESP 18; TEMP 36.3; O2SAT 99
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
[2024-07-03 15:41] VITALS: BP 154/78; PULSE 86; RESP 18; O2SAT 100
[2024-07-03] MEDS: SODIUM CHLORIDE 0.9% IV 1,000 ML 999 ML IV CONT ×2 (15:41→16:56)
[2024-07-03 15:45] LABS: Basophils Percent Auto 0.4 % (0.2-1.2); Eosinophils Absolute Auto 0.1 K/mm3 (0-0.3); Eosinophils Percent Auto 0.6 % (0-4.4); Hematocrit 42.2 % (37.0-47.0); Hemoglobin 13.6 g/dL (12.0-15.0); Immature Granulocyte Absolute 0.05 K/mm3 (0.00-0.031); Immature Granulocyte Percent A 0.5 % (0-0.5); Lymphocytes Absolute Auto 2.82 K/mm3 (0.9-3.2); Lymphocytes Percent Auto 25.9 % (18.3-44.2); Mean Corpuscular HGB Conc 32.2 g/dl (32-36); Mean Corpuscular Hemoglobin 26.5 pg (26-34); Mean Corpuscular Volume 82.3 fl (80-100); Mean Platelet Volume 11.7 fl (7.4-10.4); Monocytes Absolute Auto 0.7 K/mm3 (0.1-0.6); Monocytes Percent Auto 6.6 % (2.6-8.5); Neutrophils Absolute Auto 7.2 K/mm3 (1.3-6.7); Platelet Count Result 304 k/mm3 (150-375); Red Blood Count 5.13 M/mm3 (4.2-5.4); Red Cell Distribution Width 15.6 % (11.5-14.5); White Blood Count 10.9 K/mm3 (4.5-10.0)
[2024-07-03 15:57] LABS: Alanine Aminotransferase 25 U/L (6-35); Albumin Level 4.4 g/dL (3.5-5.1); Alkaline Phosphatase 51 U/L (38-126); Anion Gap 12 mmol/L (4-12); Aspartate Amino Transferase 28 U/L (14-36); Bilirubin,Total 0.4 mg/dL (0.2-1.3); Blood Urea Nitrogen 13 mg/dL (7-17); Calcium 8.9 mg/dL (8.4-10.2); Carbon Dioxide 24 mmol/L (22-30); Chloride 100 mmol/L (98-107); Estimated CRCL calculation 110 ml/min; Estimated Glomerular Filt Rate > 60; Glucose 88 mg/dL (65-110); Potassium 3.8 mmol/L (3.4-5.0); Sodium 136 mmol/L (137-145)
[2024-07-03 17:57] VITALS: BP 167/97; BP 177/83; BP 178/97; PULSE 78; PULSE 82; PULSE 84
[2024-07-03 18:15] VITALS: BP 162/80; PULSE 84; RESP 20; TEMP 36.8; O2SAT 99
== END 2024-07-03 18:16 | disposition home or self-care (01) ==
PROVIDERS: Emergency Provider Emergency Medicine; PCP Family Medicine
DX: N93.9 Abnormal uterine and vaginal bleeding, unspecified (principal); I10 Essential (primary) hypertension; E78.2 Mixed hyperlipidemia; E66.01 Morbid (severe) obesity due to excess calories; Z68.42 Body mass index [BMI] 45.0-49.9, adult; G47.33 Obstructive sleep apnea (adult) (pediatric); Z86.16 Personal history of COVID-19; Z79.899 Other long term (current) drug therapy
CPT/HCPCS: 36415; 80053; 85025; 86850; 86900; 86901; 96360; 99284; J7030

== ENCOUNTER 2024-07-17 07:12 | Outpatient (CLI) | payer OTHER, SELFPAY ==
[2024-07-17 07:47] LABS: Cholesterol 168 mg/dL (0-200); HDL Direct 41 mg/dL; Triglycerides 215 mg/dL (<150)
[2024-07-17 07:58] LABS: LDL Cholesterol Direct 96 mg/dL
== END 2024-07-17 07:13 | disposition home or self-care (01) ==
PROVIDERS: PCP Family Medicine; Visit Provider Nurse Practitioner Family
DX: E78.2 Mixed hyperlipidemia (principal)
CPT/HCPCS: 36415; 80061

== ENCOUNTER 2025-02-16 09:04 | Outpatient (CLI) | payer OTHER, SELFPAY ==
[2025-02-16 09:47] LABS: Basophils Absolute Auto 0.1 K/mm3 (0.0-0.1); Basophils Percent Auto 0.6 % (0.2-1.2); Eosinophils Absolute Auto 0.1 K/mm3 (0-0.3); Eosinophils Percent Auto 1.3 % (0-4.4); Hematocrit 41.1 % (37.0-47.0); Hemoglobin 13.1 g/dL (12.0-15.0); Immature Granulocyte Absolute 0.04 K/mm3 (0.00-0.031); Immature Granulocyte Percent A 0.4 % (0-0.5); Lymphocytes Absolute Auto 2.47 K/mm3 (0.9-3.2); Lymphocytes Percent Auto 25.8 % (18.3-44.2); Mean Corpuscular HGB Conc 31.9 g/dl (32-36); Mean Corpuscular Hemoglobin 26.5 pg (26-34); Mean Corpuscular Volume 83.2 fl (80-100); Mean Platelet Volume 10.9 fl (7.4-10.4); Monocytes Absolute Auto 0.9 K/mm3 (0.1-0.6); Neutrophils Percent Auto 62.9 % (45.5-73.1); Platelet Count Result 274 k/mm3 (150-375); Red Blood Count 4.94 M/mm3 (4.2-5.4); Red Cell Distribution Width 15.3 % (11.5-14.5); White Blood Count 9.6 K/mm3 (4.5-10.0)
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
--- OUTSIDE RECORDS SUMMARY | 2025-02-16 09:55 | XMS_ITS | Clinical Summary ---
Author Organization [facility] Address [facility] [place] [address] Care Team Providers Care Payroll Coordinator Name Role Phone Myles Swann MD Primary Care Provider [phone] Allergies No known active allergies Social History Tobacco Use Types Packs/Day Years Used Date Smoking Tobacco: Never Smokeless Tobacco: Never Alcohol Use Standard Drinks/Week Comments Yes 0 (1 standard drink = 0.6 oz pur e alcohol) Comments Unknown Sex and Gender Information Value Date Recorded Sex Assigned at Not on file Legal Sex Female 7:20 PM CDT Gender Identity Not on file Sexual Orientation Not on file Last Filed Vital Signs Vital Sign Reading Time Taken Comments Blood Pressure 124/63 03/16/2018 8:57 PM CDT Pulse 95 03/16/2018 8:57 PM CDT Temperature 36.1 C (97 F) 03/16/2018 8:57 PM CDT Respiratory Rate 21 03/16/2018 8:57 PM CDT Oxygen Saturation 100% 03/16/2018 8:30 PM CDT Inhaled Oxygen Concentration - - Weight 139.3 kg (307 lb) 03/16/2018 7:21 PM CDT Height 162.6 cm (5' 4 ) 03/16/2018 7:21 PM CDT Body Mass Index 52.7 03/16/2018 7:21 PM CDT Plan of Treatment Health Maintenance Due Date Last Done Comments Cervical Cancer Screening Pa p Smear (Age 30 to 64) Every 3 Years 1981 Annual Physical 1984 Hepatitis C 1999 Hepatitis B Vaccines (1 of 3 - 19+ 3-dose series) 2000 Cervical Cancer Screening Pa p with HPV Testing (Age 30 to 64) Every 5 Years 2011 Cervical Cancer Screening with HPV 2011 Mammogram Screening 2021 COVID-19 Vaccine (1 - 2023-2 5 season) 2024 Influenza Adult (#1) 2024 DTaP, Tdap and Td Vaccines ( 2 - Td or Tdap) 03/16/2028 03/16/2018 HPV Vaccines Aged Out No longer eligi ble based on patient's age to complete this topic Meningococcal B Vaccine Aged Out No l onger eligible based on patient's age to complete this topic Meningococcal Vaccine Aged Out No jose med eligible based on patient's age to complete this topic Pneumococcal Vaccine: Pediat rics (0 to 5 Years) and At-Risk Patients (6 to 64 Years) Aged Out No longer eligi ble based on patient's age to complete this topic RSV Immunizations Under 20 Months Aged Out No longer eligible based on patient's age to complete this [place] [address] [address] [place] [address] [employer] Care Teams Payroll Coordinator Relationship Specialty Start Date End Date Myles Swann MD [address] [place], [place] [id number] PCP - General FAMILY PRACTICE 05/11/22
--- OUTSIDE RECORDS SUMMARY | 2025-02-16 09:55 | XMS_ITS | Encounter Summary ---
Author Organization [facility] Address [address] [place] [address] Care Team Providers Care Varnish Supervisor Name Role Phone Myles Swann MD Primary Care Provider [phone] Reason for Visit * Reason Onset Date Comments MEDICATION REFILL 02/10/2024 Encounter Details Date Type Department Care Team (Late st Contact Info) Description 02/10/2024 Refill [facility] - Neurology [address] [place] [address] [place] [id number] Zoltan Arriaga MD [address] [place] [address] [place] [id number] MEDICATION REFILL Social History Tobacco Use Types Packs/Day Years Used Date Smoking Tobacco: Never Smokeless Tobacco: Never Alcohol Use Standard Drinks/Week Comments Yes 0 (1 standard drink = 0.6 oz pur e alcohol) Socially Sex and Gender Information Value Date Recorded Sex Assigned at Female 01/18/2023 11:38 AM JOB COMPOSITOR Gender Identity Female 01/18/2023 11:38 AM JOB COMPOSITOR Sexual Orientation Straight 01/18/2023 11 :38 AM JOB COMPOSITOR documented as of this encounter Functional Status Functional Status Response Date of Assess ment Is person deaf or have serious hearing difficult y? No 03/17/2018 Is person blind or have serious difficulty seein g? No 03/17/2018 Does person have serious dif ficulty walking/climbing stairs? No 03/17/2018 Does person have difficulty dressing/bathing? No 03/17/2018 Does person have difficulty doing errands alone? No 03/17/2018 Cognitive Status Response Date of Assessm ent Does person have difficulty concentrating/remembering/making decisions? No 03/17/2018 documented as of this encounter Plan of Treatment Not on file documented as of this encounter Visit Diagnoses Diagnosis Myelitis (HCC) Unspecified cause of encephalitis, myelitis, and encephalomyelitis Neuropathic pain Neuralgia, neuritis, and radiculitis, unspecified documented in this encounter Care Teams Varnish Supervisor Relationship Specialty Start Date End Date Myles Swann MD [address] [place] [address] PCP - General Family Medicine 03/19/18 documented as of this encounter
--- OUTSIDE RECORDS SUMMARY | 2025-02-16 09:55 | XMS_ITS | Referral Summary ---
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 Primary osteoarthritis of left hip 02/09/2020 Overview (02/09/2020): Added automatically from request for surgery [id number] Closed fracture of multiple ribs of left [...] Immunization Administration Dates Next Due Tdap 03/16/2018 Social History Tobacco Use Types Packs/Day Years Used Date Smoking Tobacco: Never Smokeless Tobacco: Never Alcohol Use Standard Drinks/Week Comments Yes 0 (1 standard drink = 0.6 oz pur e alcohol) rare Comments No Sex and Gender Information Value Date Recorded Sex Assigned at Not on file Legal Sex Female 3:25 AM GROWTH HACKER Gender Identity Female 03/16/2022 6:48 AM CDT Sexual Orientation Straight 03/16/2022 6: 48 AM CDT Last Filed Vital Signs Vital Sign Reading Time Taken Comments Blood Pressure 127/84 11/16/2020 3:59 PM GROWTH HACKER Pulse 98 11/16/2020 3:59 PM GROWTH HACKER Temperature 36.6 C (97.8 F) 11/16/2020 3:59 PM GROWTH HACKER Respiratory Rate 20 11/08/2020 8:40 AM GROWTH HACKER Oxygen Saturation 95% 11/08/2020 8:40 AM GROWTH HACKER Inhaled Oxygen Concentration - - Weight 127.9 kg (282 lb) 11/16/2020 3:59 PM GROWTH HACKER Height 165.1 cm (5' 5 ) 11/16/2020 3:59 PM GROWTH HACKER Body Mass Index 46.93 11/16/2020 3:59 PM GROWTH HACKER Plan of Treatment Not on file Medical Devices Implanted Type Area Shoer Device Identifier Shelf Expiration Date Model / Serial / Lot [employer] [id number] 50mm Multihole Hip D Hemisphere Offset Shell Acetabular - [id number] Implanted:Qty: 1 on 04/06/2020 by Celso Mueller MD at [facility] Left: Hip [employer] [id number] 03/19/2029 [id number] / / [id number] [employer] [id number] Trilogy 6.5mm 30mm Self Tap Acetabular Cortical Screw Bone - [id number] Implanted:Qty: 1 on 04/06/2020 by Celso Mueller MD at [facility] Left: Hip [employer] [id number] 10/24/2029 [id number] / / [id number] [employer] [id number] Trilogy 6.5mm 25mm Self Tap Screw Bone - [id number] Implanted:Qty: 1 on 04/06/2020 by Celso Mueller MD at [facility] Left: Hip [employer] [id number] 03/24/2025 [id number] / / [id number] [employer] [id number] Trilogy 6.5mm 30mm Self Tap Acetabular Cortical Screw Bone - [id number] Implanted:Qty: 1 on 04/06/2020 by Celso Mueller MD at [facility] Left: Hip [employer] [id number] 10/24/2029 [id number] / / [id number] [employer] [id number] Trilogy 6.5mm 25mm Self Tap Screw Bone - [id number] Implanted:Qty: 1 on 04/06/2020 by Celso Mueller MD at [facility] Left: Hip [employer] [id number] 09/24/2029 [id number] / / [id number] [employer] [id number] 40mm 2 Mobility Hip D Liner Acetabular Cocr - [id number] Implanted:Qty: 1 on 04/06/2020 by Celso Mueller MD at [facility] Left: Hip [employer] [id number] 05/15/2029 [id number] / / [id number] [employer] [id number] Active Articulation 40mm Bearing Hip Arcomxl Sterile 28mm Modular - [id number] Implanted:Qty: 1 on 04/06/2020 by Celso Mueller MD at [facility] Left: Hip [employer] [id number] 07/09/2024 [id number] / / [id number] [employer] [id number] Taperloc Microplasty 102.5mm Type 1 Hip 133d 9 High Offset Taper - [id number] Implanted:Qty: 1 on 04/06/2020 by Celso Mueller MD at [facility] Left: Hip [employer] [id number] 03/28/2029 [id number] / / [id number] [employer] [id number] 28mm Modular Hip Standard Head Femoral Biolox Delta - [id number] Implanted:Qty: 1 on 04/06/2020 by Celso Mueller MD at [facility] Left: Hip [employer] 03/05/2029 [id number] / / [id number] [address] Advance Directives For more information, please contact: [phone] * Full Code (Latest Code Status on File) Date Activated Date Inactivated Comments 04/06/2020 5:12 PM 04/07/2020 8:49 PM Care Teams Nutrition Associate Relationship Specialty Start Date End Date Myles Swann MD PCP - General Family Medicine 01/04/20 Patrick Agudelo MD [address] [address] Referring Physician General Surgery 10/24/20
--- OUTSIDE RECORDS SUMMARY | 2025-02-16 09:55 | XMS_ITS | Encounter Summary ---
Author Organization [facility] Address [address] [place] [address] Care Team Providers Care Batch Mixer Name Role Phone Myles Swann MD Primary Care Provider [phone] Reason for Visit * Reason Onset Date Comments Future Appointment 01/28/2023 Encounter Details Date Type Department Care Team (Late st Contact Info) Description 01/28/2023 Telephone [facility] SCHEDULING [address] [place] [phone] Heri Shah MD [facility] [address] [address] Future Appointment Social History Tobacco Use Types Packs/Day Years Used Date Smoking Tobacco: Never Smokeless Tobacco: Never Alcohol Use Standard Drinks/Week Comments Yes 0 (1 standard drink = 0.6 oz pur e alcohol) Socially Sex and Gender Information Value Date Recorded Sex Assigned at Female 01/18/2023 11:38 AM TOPSTITCHER LOCKSTITCH Gender Identity Female 01/18/2023 11:38 AM TOPSTITCHER LOCKSTITCH Sexual Orientation Straight 01/18/2023 11 :38 AM TOPSTITCHER LOCKSTITCH documented as of this encounter Functional Status [...] No 03/17/2018 documented as of this encounter Miscellaneous Notes * Telephone Encounter - Bina Maldonado, RN - 01/28/2023 4:29 PM CST Returned call to patient to reschedule appointment- states she had the appointments on the same daybut now they have been changed. Instructed that we will look at scheduled. TITCHER LOCKSTITCH * Telephone Encounter - Miguel Roper - 01/28/2023 4:23 PM CST Pt was bumped from 02/13 appt and needs a CT scan before her appt. Pt would like to know if she cankeep the CT on 02/13 and just schedule her appt or if the have to be on the same day. Please reach out to pt to reschedule. TITCHER LOCKSTITCH documented in this encounter Plan of Treatment Not on file documented as of this encounter Visit Diagnoses Not on filedocumented in this encounter Care Teams Batch Mixer Relationship Specialty Start Date End Date Myles Swann MD [address] [place] [address] PCP - General Family Medicine 03/19/18 documented as of this encounter
[2025-02-16 10:04] LABS: Anion Gap 12 mmol/L (4-12); Blood Urea Nitrogen 16 mg/dL (7-17); Calcium 9.8 mg/dL (8.4-10.2); Carbon Dioxide 26 mmol/L (22-30); Chloride 103 mmol/L (98-107); Estimated Glomerular Filt Rate > 60; Glucose 95 mg/dL (65-110); Potassium 4.5 mmol/L (3.4-5.0); Sodium 141 mmol/L (137-145)
[2025-02-16 10:05] LABS: Hemoglobin A1C 5.9 % (<5.7)
== END 2025-02-16 09:05 | disposition home or self-care (01) ==
LOC: ANHLAB 09:05
PROVIDERS: PCP Family Medicine; Visit Provider Physician Assistant Medical
DX: R73.03 Prediabetes (principal); E03.9 Hypothyroidism, unspecified; I10 Essential (primary) hypertension
CPT/HCPCS: 36415; 80048; 83036; 84443; 85025

== ENCOUNTER 2025-03-11 13:33 | Outpatient (CLI) | payer OTHER, SELFPAY ==
--- NOTE | ~2025-03-11 | MM_ITS ---
EXAMINATION: MM screening ronald BI w jorge HISTORY: Screening TECHNIQUE: Craniocaudal and mediolateral oblique 3-D tomosynthesis images were obtained and synthetic 2-D images were generated. CAD analysis was submitted and interpreted. COMPARISON: Comparison to multiple prior studies sequentially, with oldest reviewed study dated 01/09. BREAST PARENCHYMAL COMPOSITION: Not dense: There are scattered areas of fibroglandular density. FINDINGS: There is no evidence of suspicious mass, calcification, or architectural distortion to sugg est malignancy in either breast. There has been no suspicious interval change. IMPRESSION: 1. No mammographic evidence of malignancy. 2. Recommend routine screening mammography in one year. BI-RADS Category 1: Negative Reviewed, dictated and finalized at location B.
== END 2025-03-11 13:34 | disposition home or self-care (01) ==
LOC: MICIMG 13:33
PROVIDERS: PCP Family Medicine; Visit Provider Obstetrics & Gynecology Gynecology
DX: Z12.31 Encounter for screening mammogram for malignant neoplasm of breast (principal)
CPT/HCPCS: 77063; 77067

== ENCOUNTER 2025-03-16 12:30 | Outpatient (CLI) | payer OTHER, SELFPAY ==
--- NOTE | 2025-03-16 12:37 | ECHO_ITS ---
Patient Info Name: Pili Allen Age: 44 years : 1980 Gender: Female Ht: 65 in Wt: 298 lbs BSA: 2.57 m2 HR: 74 bpm BP: 147 / 87 mmHg Heart Rhythm: Sinus Rhythm Technical Quality: Fair Exam Date: 03/16/2025 12:45 PM Exam Location: Echo Lab Patient Status: Outpatient Admit Date: 03/16/2025 Staff Ordering Physician: Luisana Loera PAC Fire Investigation Manager: Trisha Kuo RDCS Attending Provider: Luisana Loera Referring Physician: Evaristo DE JESUS; Exam Type: CA echo doppler color flow Study Info Indications R01.1 - Cardiac murmur, unspecified Complete two-dimensional, color flow and Doppler transthoracic echocardiogram is performed. Summary 1. Complete two-dimensional, color flow and Doppler transthoracic echocardiogram is performed. 2. Left ventricular chamber dimension is normal. 3. Left ventricular systolic function is normal, estimated at 65-70%. 4. The left ventricular diastolic function is normal. 5. E/e' 9 is minimally elevated. 6. There is trace mitral valve regurgitation. 7. No pulmonary hypertension, estimated pulmonary arterial systolic pressure is 27 mmHg. Left Ventricle E/e' 9 is minimally elevated. Left ventricular chamber dimension is normal. Left ventricular systolic function is normal, estimated at 65-70%. The left ventricular diastolic function is normal. Right Ventricle Right ventricular systolic function is normal and with normal TAPSE 3.1 cm. Right ventricular chamber dimension is normal. Left Atria Left atrial chamber dimension is normal. Right Atria Right atrial chamber dimension is normal. Aortic Valve The aortic valve is trileaflet. There is no aortic valve stenosis. There is no aortic valve regurgitation. Pulmonic Valve There is no pulmonic regurgitation. Mitral Valve There is no mitral valve stenosis. There is trace mitral valve regurgitation. Tricuspid Valve There is no tricuspid valve regurgitation. No pulmonary hypertension, estimated pulmonary arterial systolic pressure is 27 mmHg. Pericardium/Pleural There is no pericardial effusion. Inferior Vena Cava Normal inferior vena cava with >50% collapse upon inspiration consistent with normal right atrial pressure, 5 mmHg. Aorta The aortic root size at the sinus of Valsalva is normal. Left Ventricular Outflow Tract Name Value Normal LVOT 2D LVOT Diameter 2.0 cm LVOT Doppler LVOT Peak Gradient 10 mmHg LVOT Mean Gradient 5 mmHg LVOT VTI 30 cm LVOT VTI/AV VTI Ratio 0.8 LVOT Stroke Volume 94 ml LVOT CO 6.9 l/min LVOT CI 2.7 l/min/m2 Pulmonic Valve Name Value Normal RVOT Doppler RVOT Peak Gradient 5 mmHg PV Doppler PV Peak Gradient 9 mmHg Mitral Valve Name Value Normal MV Doppler MV Decel [place] 497 cm/s2 MV PHT 61 ms MV Area (PHT) 3.6 cm2 4.0-5.0 MV Diastolic Function MV E Peak Velocity 104 cm/s MV A Peak Velocity 92 cm/s MV E/A 1.1 MV Decel Time 210 ms MV Annular TDI MV E/e' (Septal) 11.1 <=8.0 MV E/e' (Lateral) 8.6 <=8.0 MV E/e' (Average) 9.9 Tricuspid Valve Name Value Normal TV Regurgitation Doppler TR Peak Velocity 234 cm/s TR Peak Gradient 22 mmHg Estimated PAP/RSVP RA Pressure 5 mmHg <=5 PA Systolic Pressure 27 mmHg <36 RV Systolic Pressure 27 mmHg <36 Aorta Name Value Normal Ascending Aorta Ao Root Diameter (MM) 2.8 cm Ao Root Diam Index (MM) 1.1 cm/m2 Aortic Valve Name Value Normal AV Doppler AV Peak Velocity 212 cm/s AV Peak Gradient 18 mmHg AV Mean Gradient 8 mmHg AV VTI 39 cm AV Area (Cont Eq VTI) 2.4 cm2 >=3.0 AV Area (Cont Eq Pratik) 2.3 cm2 AV Regurgitation 2D LVOT Area 3.1 cm2 Ventricles Name Value Normal LV Dimensions 2D/MM IVS Diastolic Thickness (2D) 1.1 cm 0.6-1.0 LVID Diastole (2D) 4.7 cm 3.8-5.2 LVIW Diastolic Thickness (2D) 0.9 cm 0.6-0.9 LVID Systole (2D) 2.9 cm 2.2-3.5 LVOT Diameter 2.0 cm LV Mass (2D Cubed) 158.58 g 67.00-162.00 LV Mass Index (2D Cubed) 62 g/m2 43-95 Relative Wall Thickness (2D) 0.38 LV Fractional Shortening/Ejection Fraction 2D/MM LV Fractional Shortening (2D) 39 % 27-45 LV EF (2D Teicholz) 70 % 54-74 LV Diastolic Volume (4C MOD) 74 ml LV EF (4C MOD) 70 % LV Diastolic Volume (2C MOD) 79 ml LV EF (2C MOD) 71 % LV Diastolic Volume (BP MOD) 77 ml 46-106 LV Diastolic Volume Index (BP MOD) 30 ml/m2 29-61 LV Systolic Volume (BP MOD) 23 ml 14-42 LV Systolic Volume Index (BP MOD) 9 ml/m2 8-24 LV EF (BP MOD) 70 % 54-74 LV Diastolic Length (4C) 7.5 cm LV Systolic Length (4C) 6.0 cm LV Stroke Volume (4C MOD) 52 ml Atria Name Value Normal LA Dimensions LA Dimension (MM) 4.7 cm 2.7-3.8 LA Volume (4C A-L) 51 ml LA Volume (BP A-L) 60 ml RA Dimensions RA Area (4C) 18.7 cm2 <=18.0 Report Signatures
--- OUTSIDE RECORDS SUMMARY | 2025-03-16 14:02 | XMS_ITS | Encounter Summary ---
Author Organization [facility] Address [address] [place] [address] Care Team Providers Care Food Supervisor Name Role Phone Myles Swann MD Primary Care Provider [phone] Reason for Visit * Reason Onset Date Comments MEDICATION REFILL 02/10/2024 Encounter Details Date Type Department Care Team (Late st Contact Info) Description 02/10/2024 Refill [facility] - Neurology [address] [place] [address] [place] [phone] Zoltan Arriaga MD [address] [place] [address] [place] [phone] MEDICATION REFILL Social History Tobacco Use Types Packs/Day Years Used Date Smoking Tobacco: Never Smokeless Tobacco: Never Alcohol Use Standard Drinks/Week Comments Yes 0 (1 standard drink = 0.6 oz pur e alcohol) Socially Comments Unknown Sex and Gender Information Value Date Recorded Sex Assigned at Female 01/18/2023 11:38 AM CURED MEAT PACKING SUPERVISOR Legal Sex Female 4:13 AM CURED MEAT PACKING SUPERVISOR Gender Identity Female 01/18/2023 11:38 AM CURED MEAT PACKING SUPERVISOR Sexual Orientation Straight 01/18/2023 11 :38 AM CURED MEAT PACKING SUPERVISOR documented as of this encounter Functional Status * Is person deaf or have serious hearing difficulty? Answer Date of Assessment Author No 03/17/2018 3:59 AM Vance Koch RN * Is person blind or have serious difficulty seeing? Answer Date of Assessment Author No 03/17/2018 3:59 AM Vance Koch RN * Does person have serious difficulty walking/climbing stairs? Answer Date of Assessment Author No 03/17/2018 3:59 AM Vance Koch RN * Does person have difficulty dressing/bathing? Answer Date of Assessment Author No 03/17/2018 3:59 AM Vance Koch RN * Does person have difficulty doing errands alone? Answer Date of Assessment Author No 03/17/2018 3:59 AM Vance Koch RN documented as of this encounter Mental Status * Does person have difficulty concentrating/remembering/making decisions? Answer Entry Date Author No 03/17/2018 3:59 AM Vance Koch RN documented in this encounter Plan of Treatment Not on file documented as of this encounter Visit Diagnoses Diagnosis Myelitis (HCC) Unspecified cause of encephalitis, myelitis, and encephalomyelitis Neuropathic pain Neuralgia, neuritis, and radiculitis, unspecified documented in this encounter Care Teams Food Supervisor Relationship Specialty Start Date End Date Myles Swann MD [address] [place] [address] PCP - General Family Medicine 03/19/18 documented as of this encounter
--- OUTSIDE RECORDS SUMMARY | 2025-03-16 14:03 | XMS_ITS | Clinical Summary ---
Author Organization [facility] Address [address] [place] [address] Care Team Providers Care Claims Associate Name Role Phone Myles Swann MD Primary Care Provider [phone] Source Comments [facility],non-owned Affiliates and Associated Physician Practices is amultiple site organization consisting of ambulatory clinics and hospital sitesin [place], [place]. This disclosure is being madepursuant to the Care Everywhere program and may not contain all information available regarding this patient. Last updated 18.[facility] Allergies No known active allergies Medications * Be aware that medications may not be up to date on this document. Alwaysverify current medications with the patient. loratadine (CLARITIN) 10 MG tablet Take 1 tablet by mouth once daily 30 tablet 8 Active Additional Information Patient not taking.Reported on 01/16/2023 multivitamin daily (THERAGRAN) tablet Take 1 tablet by mouth once daily 30 tablet 8 Active methocarbamol (ROBAXIN) 750 MG tablet Take 1 tablet by mouth every 6 hours as needed for Muscle Spasms 60 tablet 8 Active Additional Information Patient not taking.Reported on 01/15/2023 MAGNESIUM PO Take 2 capsules by mouth once daily Active ferrous sulfate EC 325 (65 FE) MG tablet Take 1 (one) tablet by mouth 2 times daily Active Cholecalciferol (VITAMIN D) 400 UNIT/ML Active meloxicam (MOBIC) 15 MG tablet Take 1 (one) tablet by mouth once daily 2 9 Active triamterene-hyd roCHLOROthiazid e (MAXZIDE) 75-50 MG tablet Take 1 (one) tablet by mouth once daily 3 9 Active celecoxib (CELEBREX) 200 MG capsule Take 1 capsule by mouth once daily 90 capsule 3 9 Active Additional Information Patient not taking.Reported on 01/16/2023 celecoxib (CELEBREX) 200 MG capsule Take 1 capsule by mouth once daily 90 capsule 3 0 Active Additional Information Patient not taking.Reported on 01/16/2023 tiZANidine (Zanaflex) 2 MG capsule Take 1 (one) capsule by mouth every 8 hours as needed for Muscle Spasms Active Biotin 36823 MCG Take 1 (one) tablet by mouth every morning Active melatonin 3 MG tablet Take 1 (one) tablet by mouth at bedtime Active vitamin C (Ascorbic Acid) 1000 MG tablet Take 1 (one) tablet by mouth once daily Active amitriptyline (Elavil) 25 MG tabletIndicatio ns:Myelitis (HCC),Neuropath ic pain Take 3 (three) tablets by mouth every evening 270 tablet 1 3 Active Active Problems Problem Noted Date Diagnosed Date Personal history of (healed) traumatic fracture 01/16/2023 Retained orthopedic hardware 01/16/2023 Perianal abscess 10/24/2020 Overview (01/16/2023): Added automatically from request for surgery [id number] Elbow effusion, right 03/24/2018 Pelvic hematoma, female [...] of shaft of right humerus 03/24/2018 Immunizations Immunization Administration Dates Next Due TDAP (7yrs+) 03/16/2018 [...] Sex Assigned at Female 01/18/2023 11:38 AM WOOD TYPE FINISHER Legal Sex Female 4:13 AM WOOD TYPE FINISHER Gender Identity Female 01/18/2023 11:38 AM WOOD TYPE FINISHER Sexual Orientation Straight 01/18/2023 11 :38 AM WOOD TYPE FINISHER Last Filed Vital Signs Vital Sign Reading [...] - 19+ 3-dose series) 2000 COVID-19 VACCINE ( - season) 2024 DEPRESSION SCREENING 11/25/2024 INFLUENZA VACCINE (Season Ended) 2025 SCREENING FOR DIABETES 01/16/2026 , 03/24/2018, 03/21/2018, [...] this topic Medical Devices Implanted Type Area Communications Equipment Installer Device Identifier Shelf Expiration Date Model / Serial / Lot Cavendish Sut Sqa+ Othcrd 2.8mm Ntnl Ndl Implanted:Qty: 1 on 03/18/2018 by Iona Buck MD at [facility] Left: Acetabulum [employer] 12/25/2020 [id number] / / [id number] 3.5 Cortical Screw Implanted:Qty: 1 on 03/18/2018 by Iona Buck MD at [facility] Left: Acetabulum 204.850 / / Plate 2 Hl Lopro Sprg Ss 3.5 Mm Screws Implanted:Qty: 2 on 03/18/2018 by Iona Buck MD at [facility] Left: Acetabulum Synthes Usa 02.100.302S / / Plate 65x10.2x2.7mm 5 Hl Lopro Recon Ss Implanted:Qty: 1 on 03/18/2018 by Iona Buck MD at [facility] Left: Acetabulum Synthes Usa 245.025 / / Plate Str 104mm 8 Hl Lopro Recon Ss 3.5 Implanted:Qty: 1 on 03/18/2018 by Iona Buck MD at [facility] Left: Acetabulum Synthes Usa 245.028 / / 3.5 Cortex Screw Implanted:Qty: 1 on 03/18/2018 by Iona Buck MD at [facility] Left: Acetabulum 204.820 / / Screw Bn 3.5mm 26mm Lcp Ss Carlos St Ns Sm Implanted:Qty: 1 on 03/18/2018 by Iona Buck MD at [facility] Left: Acetabulum Synthes Usa 204.826 / / Screw Bn 3.5mm 38mm Dcp Lc Dcp Ss Hum Implanted:Qty: 2 on 03/18/2018 by Iona Buck MD at [facility] Left: Acetabulum Synthes Usa 204.838 / / Screw Bn 3.5mm 28mm Dcp Lc Dcp Ss Hum Implanted:Qty: 1 on 03/18/2018 by Iona Buck MD at [facility] Left: Acetabulum Synthes Usa 204.828 / / Screw Bn 3.5mm 6mm 30mm Lc Dcp Dcp Ss Ft Implanted:Qty: 1 on 03/18/2018 by Iona Buck MD at [facility] Left: Acetabulum Synthes Usa 204.830 / / Screw Bn 3.5mm 6mm 32mm Lc Dcp Dcp Ss Ft Implanted:Qty: 1 on 03/18/2018 by Iona Buck MD at [facility] Left: Acetabulum Synthes Usa 204.832 / / 3.5 Cortical Screw Implanted:Qty: 3 on 03/18/2018 by Iona Buck MD at [facility] Left: Acetabulum 204.834 / / Screw 3.5mm 22mm 2.2mm Elb Carlos Nonlock Implanted:Qty: 1 on 03/20/2018 by Iona Buck MD at [facility] [employer] [id number] / / 3.5 Low Profile Screw Implanted:Qty: 1 on 03/20/2018 by Iona Buck MD at [facility] [employer] Inc [id number] / / Lateral Dis Hum Plate Implanted:Qty: 1 on 03/20/2018 by Iona Buck MD at [facility] [employer] Inc [id number] / / Medial Distal Humerus Plates Implanted:Qty: 1 on 03/20/2018 by Iona Buck MD at [facility] [employer] Inc [id number] / / Screw 2.7mm 26mm Ft Elb Carlos Hex Drv Implanted:Qty: 1 on 03/20/2018 by Iona Buck MD at [facility] [employer] [id number] / / Screw 3.5mm 20mm Ft Elb Carlos Nonlock Hex Implanted:Qty: 2 on 03/20/2018 by Iona Buck MD at [facility] [employer] [id number] / / Screw 3.5mm 22mm Tib Carlos Dist Nonlock Implanted:Qty: 1 on 03/20/2018 by Iona Buck MD at [facility] [employer] [id number] / / Screw 3.5mm 24mm Ft Elb Carlos Hex Drv Implanted:Qty: 2 on 03/20/2018 by Iona Buck MD at [facility] [employer] 8150-37-024 / / Screw 3.5mm 26mm 2.5mm Tib Carlos Dist Implanted:Qty: 1 on 03/20/2018 by Iona Buck MD at [facility] [employer] 8150-37-026 / / Screw 3.5mm 48mm Ft Elb Carlos Nonlock Hex Implanted:Qty: 1 on 03/20/2018 by Iona Buck MD at [facility] [employer] 8150-37-048 / / Screw 3.5mm 14mm T15 Tib Carlos Dist Lck Implanted:Qty: 1 on 03/20/2018 by Iona Buck MD at [facility] [employer] 8161-35-014 / / Screw 3.5mm 16mm T15 Tib Carlos Dist Lck Implanted:Qty: 2 on 03/20/2018 by Iona Buck MD at [facility] [employer] 8161-35-016 / / Screw 3.5mm 18mm T15 Tib Carlos Dist Lck Implanted:Qty: 1 on 03/20/2018 by Iona Buck MD at [facility] [employer] 8161-35-018 / / Screw 3.5mm 34mm Elb Carlos Lck Slf-Tap Implanted:Qty: 1 on 03/20/2018 by Iona Buck MD at [facility] [employer] 8161-35-034 / / Explanted Type Area Communications Equipment Installer Device Identifier Shelf Expiration Date Model / Serial / Lot 3.5 Cortical Screw Explanted:Qty: 1 on 03/18/2018 at [facility] Left: Acetabulum 204.855 / / Screw Extfix 190mm 6mm Schnz Blnt Spd Ss Explanted:Qty: 1 on 03/18/2018 at [facility] Left: Acetabulum Synthes Usa 294.68 / / Screw Bn 3.5mm 6mm 44mm Dcp Lc Dcp Ss Ft Explanted:Qty: 1 on 03/18/2018 at [facility] Left: Acetabulum Synthes Usa 204.844 / / Screw Bn 3.5mm 6mm 46mm Dcp Lc Dcp Ss Ft Explanted:Qty: 1 on 03/18/2018 at [facility] Left: Acetabulum Synthes Usa 204.846 / / Wire K 1.6mm 6in Fem Tib Sm Frag Plate [facility]planted:Qty: [facility]/[address] [facility] / / Procedures Procedure Name Priority Date/Time Associated Diagnosis Comments COMPREHENSIVE METABOLIC PANEL Routine 01/16/2023 12:09 PM WOOD TYPE FINISHER MAGAZINE GRINDER LOADER demyelinating disease Myelitis HIV-1 HIV-2 ANTIBODY + HIV P24 AG PANEL Routine 01/16/2023 12:09 PM WOOD TYPE FINISHER MAGAZINE GRINDER LOADER demyelinating disease Myelitis from Last 3 Months or Most Recently Relevant to Health Maintenance Results * HIV-1 HIV-2 ANTIBODY + HIV P24 AG PANEL (01/16/2023 12:09 PM WOOD TYPE FINISHER) HIV Antigen/Antibod y 1 & 2 Non-reacti ve Non-react hoang 01/16/2023 2:29 PM [facility] Comment:No Laboratory eviden ce of HIV infection. Blood BLOOD SPECIMEN / Unknown Lab Venipuncture / Unknown 01/16/2023 12:09 PM WOOD TYPE FINISHER 01/16/2023 12:45 PM WOOD TYPE FINISHER Heri Shah MD LAB - CHEMI STRY ORDERABLES Final Result [facility] [address] [place] [address], [facility] [phone] * COMPREHENSIVE METABOLIC PANEL (01/16/2023 12:09 PM WOOD TYPE FINISHER) Pathologist [facility] BUN 13 7 - 26 mg/dL 01/16/2023 1:23 PM [facility] Creatinine 0.80 0.56 - 0.96 mg/dL 01/16/2023 1:23 PM [facility] Sodium 139 136 - 145 mmol/L 01/16/2023 1:23 PM [facility] Potassium 3.5 3.5 - 4.5 mmol/L 01/16/2023 1:23 PM [facility] Chloride 101 98 - 107 mmol/L 01/16/2023 1:23 PM [facility] CO2 25 22 - 29 mmol/L 01/16/2023 1:23 PM [facility] Glucose 82 70 - 115 mg/dL 01/16/2023 1:23 PM [facility] Calcium 9.9 8.4 - 10.2 mg/dL 01/16/2023 1:23 PM [facility] Protein Total 7.8 6.0 - 8.3 g/dL 01/16/2023 1:23 PM [facility] Albumin 4.1 3.4 - 5.0 g/dL 01/16/2023 1:23 PM [facility] Bilirubin Total 0.4 0.2 - 1.2 mg/dL 01/16/2023 1:23 PM [facility] Alkaline Phosphatase 58 40 - 150 U/L 01/16/2023 1:23 PM [facility] ALT 17 5 - 55 U/L 01/16/2023 1:23 PM [facility] AST 15 5 - 34 U/L 01/16/2023 1:23 PM [facility] Anion Gap 17 8 - 18 01/16/2023 1:23 PM [facility] BUN/Creatinine Ratio 16 7 - 23 01/16/2023 1:23 PM [facility] Osmolality Calculated 287 270 - 300 mOsm/kg 01/16/2023 1:23 PM [facility] Albumin/Globulin Ratio 1.1 1.1 - 2.3 01/16/2023 1:23 PM [facility] eGFR by CKD-EPI >90 >=90 mL/min/1.7 3 m2 01/16/2023 1:23 PM [facility] Blood BLOOD SPECIMEN / Unknown Lab Venipuncture / Unknown 01/16/2023 12:09 PM WOOD TYPE FINISHER 01/16/2023 12:50 PM [facility] Heri Shah MD LAB - CHEMI STRY ORDERABLES Final Result [facility] [address] [place] [address], [facility] [phone] from Last 3 Months or Most Recently Relevant to Health Maintenance [place] [address] AETNA AETNA AETNA AETNA AETNA [facility] THIRD LIBERTARIAN LIABILITY Democrat Liability Advance Directives * Full Code (Latest Code Status on File) Date Activated Date Inactivated Comments 03/18/2018 5:59 PM 03/26/2018 1:22 PM * Full Code Date Activated Date Inactivated Comments 03/17/2018 4:06 AM 03/18/2018 5:59 PM Care Teams Claims Associate Relationship Specialty Start Date End Date Myles Swann MD [address] [place] [address] PCP - General Family Medicine 03/19/18
--- OUTSIDE RECORDS SUMMARY | 2025-03-16 14:03 | XMS_ITS | Clinical Summary ---
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 Primary osteoarthritis of left hip 02/09/2020 Overview (02/09/2020): Added automatically from request for surgery [id number] Closed fracture of multiple ribs of left [...] on file Legal Sex Female 3:25 AM RESIDENT ADVISOR Gender Identity Female 03/16/2022 6:48 AM CDT Sexual Orientation Straight 03/16/2022 6: 48 AM CDT Obstetrics History Last Filed Vital Signs Vital Sign Reading Time Taken Comments Blood Pressure 127/84 11/16/2020 3:59 PM RESIDENT ADVISOR Pulse 98 11/16/2020 3:59 PM RESIDENT ADVISOR Temperature 36.6 C (97.8 F) 11/16/2020 3:59 PM RESIDENT ADVISOR Respiratory Rate 20 11/08/2020 8:40 AM RESIDENT ADVISOR Oxygen Saturation 95% 11/08/2020 8:40 AM RESIDENT ADVISOR Inhaled Oxygen Concentration - - Weight 127.9 kg (282 lb) 11/16/2020 3:59 PM RESIDENT ADVISOR Height 165.1 cm (5' 5 ) 11/16/2020 3:59 PM RESIDENT ADVISOR Body Mass Index 46.93 11/16/2020 3:59 PM RESIDENT ADVISOR Plan of Treatment Not on file Medical Devices Implanted Type Area Sheet Sewer Device Identifier Shelf Expiration Date Model / Serial / Lot [employer] [id number] 50mm Multihole Hip D Hemisphere Offset Shell Acetabular - [id number] Implanted:Qty: 1 on 04/06/2020 by Celso Mueller MD at [facility] Left: Hip [employer] [id number] 03/19/2029 [id number] / / [id number] [employer] Inc [id number] Trilogy 6.5mm 30mm Self Tap Acetabular Cortical Screw Bone - [id number] Implanted:Qty: 1 on 04/06/2020 by Celso Mueller MD at [facility] Left: Hip [employer] Inc [id number] 10/24/2029 [id number] / / [id number] [employer] Inc [id number] Trilogy 6.5mm 25mm Self Tap Screw Bone - [id number] Implanted:Qty: 1 on 04/06/2020 by Celso Mueller MD at [facility] Left: Hip [employer] Inc [id number] 03/24/2025 [id number] / / [id number] [employer] Inc [id number] Trilogy 6.5mm 30mm Self Tap Acetabular Cortical Screw Bone - [id number] Implanted:Qty: 1 on 04/06/2020 by Celso Mueller MD at [facility] Left: Hip [employer] Inc [id number] 10/24/2029 [id number] / / [id number] [employer] [id number] Trilogy 6.5mm 25mm Self Tap Screw Bone - [id number] Implanted:Qty: 1 on 04/06/2020 by Celso Mueller MD at [facility] Left: Hip [employer] Inc [id number] 09/24/2029 [id number] / / [id number] [employer] Inc [id number] G7 40mm 2 Mobility Hip D Liner Acetabular Cocr - [id number] Implanted:Qty: 1 on 04/06/2020 by Celso Mueller MD at [facility] Left: Hip [employer] [id number] 05/15/2029 [id number] / / [id number] [employer] Inc Xl-[id number] Active Articulation 40mm Bearing Hip Arcomxl Sterile 28mm Modular - [id number] Implanted:Qty: 1 on 04/06/2020 by Celso Mueller MD at [facility] Left: Hip [employer] [id number] 07/09/2024 XL-[id number] / / [id number] [employer] Inc [id number] Taperloc Microplasty 102.5mm Type 1 Hip 133d 9 High Offset Taper - [id number] Implanted:Qty: 1 on 04/06/2020 by Celso Mueller MD at [facility] Left: Hip [employer] Inc [id number] 03/28/2029 [id number] / / [id number] [employer] Inc [id number] 28mm Modular Hip Standard Head Femoral Biolox Delta - [id number] Implanted:Qty: 1 on 04/06/2020 by Celso Mueller MD at [facility] Left: Hip [employer] Inc 03/05/2029 [id number] / / [id number] Insurance O Advance Directives For more information, please contact: [phone] * Full Code (Latest Code Status on File) Date Activated Date Inactivated Comments 04/06/2020 5:12 PM 04/07/2020 8:49 PM Care Teams Aircraft Hydraulic Equipment Mechanic Relationship Specialty Start Date End Date Myles Swann MD PCP - General Family Medicine 01/04/20 Patrick Agudelo MD [address] [address] Referring Physician General Surgery 10/24/20
--- OUTSIDE RECORDS SUMMARY | 2025-03-16 14:03 | XMS_ITS | Encounter Summary ---
Author Organization [facility] Address [address] [place] [address] Care Team Providers Care Deputy United [place] Marshal Name Role Phone Myles Swann MD Primary Care Provider [phone] Reason for Visit * Reason Onset Date Comments Future Appointment 01/28/2023 Encounter Details Date Type Department Care Team (Late st Contact Info) Description 01/28/2023 Telephone [facility] SCHEDULING [address] [place] [id number] Heri Shah MD [facility] [address] [address] Future Appointment Social History Tobacco Use Types Packs/Day Years Used Date Smoking Tobacco: Never Smokeless Tobacco: Never Alcohol Use Standard Drinks/Week Comments Yes 0 (1 standard drink = 0.6 oz pur e alcohol) Socially Comments Unknown Sex and Gender Information Value Date Recorded Sex Assigned at Female 01/18/2023 11:38 AM CYTOLOGY SUPERVISOR Legal Sex Female 4:13 AM CYTOLOGY SUPERVISOR Gender Identity Female 01/18/2023 11:38 AM CYTOLOGY SUPERVISOR Sexual Orientation Straight 01/18/2023 11 :38 AM CYTOLOGY SUPERVISOR documented as of this encounter Functional [...] Vance Koch RN documented in this encounter Miscellaneous Notes * Telephone Encounter - Bina Maldonado, RN - 01/28/2023 4:29 PM CST Returned call to patient to reschedule appointment- states she had the appointments on the same daybut now they have been changed. Instructed that we will look at scheduled. LOGY SUPERVISOR * Telephone Encounter - Miguel Roper - 01/28/2023 4:23 PM CST Pt was bumped from 02/13 appt [address] needs a CT scan before her appt. Pt would like to know if she cankeep the CT on 02/13 and just schedule her appt or if the have to be on the same day. Please reach out to pt to reschedule. LOGY SUPERVISOR documented in this encounter Plan of Treatment Not on file documented as of this encounter Visit Diagnoses Not on filedocumented in this encounter Care Teams Deputy United States Marshal Relationship Specialty Start Date End Date Myles Swann MD [address] [place] [address] PCP - General Family Medicine 03/19/18 documented as of this encounter
--- OUTSIDE RECORDS SUMMARY | 2025-03-16 14:03 | XMS_ITS | Referral Summary ---
Author Organization 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 Primary osteoarthritis of left hip 02/09/2020 Overview (02/09/2020): Added automatically from request for surgery [id number] Closed fracture of multiple ribs of left [...] on file Legal Sex Female 3:25 AM BOARD CERTIFIED ARTS THERAPIST Gender Identity Female 03/16/2022 6:48 AM CDT Sexual Orientation Straight 03/16/2022 6: 48 AM CDT Last Filed Vital Signs Vital Sign Reading Time Taken Comments Blood Pressure 127/84 11/16/2020 3:59 PM BOARD CERTIFIED ARTS THERAPIST Pulse 98 11/16/2020 3:59 PM BOARD CERTIFIED ARTS THERAPIST Temperature 36.6 C (97.8 F) 11/16/2020 3:59 PM BOARD CERTIFIED ARTS THERAPIST Respiratory Rate 20 11/08/2020 8:40 AM BOARD CERTIFIED ARTS THERAPIST Oxygen Saturation 95% 11/08/2020 8:40 AM BOARD CERTIFIED ARTS THERAPIST Inhaled Oxygen Concentration - - Weight 127.9 kg (282 lb) 11/16/2020 3:59 PM BOARD CERTIFIED ARTS THERAPIST Height 165.1 cm (5' 5 ) 11/16/2020 3:59 PM BOARD CERTIFIED ARTS THERAPIST Body Mass Index 46.93 11/16/2020 3:59 PM BOARD CERTIFIED ARTS THERAPIST Plan of Treatment Not on file Medical Devices Implanted Type Area Clinical Data Management Manager Device Identifier Shelf Expiration Date Model / Serial / Lot [employer] [id number] 50mm Multihole Hip D Hemisphere Offset Shell Acetabular - [id number] Implanted:Qty: 1 on 04/06/2020 by Celso Mueller MD at [facility] Left: Hip [employer] [id number] 03/19/2029 [id number] / / [id number] [employer] [id number] Trilogy 6.5mm 30mm Self Tap Acetabular Cortical Screw Bone - [id number] Implanted:Qty: 1 on 04/06/2020 by Celso Mueller MD at [facility] Left: Hip [employer] [id number] 10/24/2029 [id number] / / [id number] [employer] [id number] Trilogy 6.5mm 25mm Self Tap Screw Bone - [id number] Implanted:Qty: 1 on 04/06/2020 by Celso Mueller MD at [facility] Left: Hip [employer] [id number] 03/24/2025 [id number] / / [id number] [employer] [id number] Trilogy 6.5mm 30mm Self Tap Acetabular Cortical Screw Bone - [id number] Implanted:Qty: 1 on 04/06/2020 by Celso Mueller MD at [facility] Left: Hip [employer] [id number] 10/24/2029 [id number] / / [id number] [employer] [id number] Trilogy 6.5mm 25mm Self Tap Screw Bone - [id number] Implanted:Qty: 1 on 04/06/2020 by Celso Mueller MD at [facility] Left: Hip [employer] [id number] 09/24/2029 [id number] / / [id number] [employer] [id number] G7 40mm 2 Mobility Hip D Liner Acetabular Cocr - [id number] Implanted:Qty: 1 on 04/06/2020 by Celso Mueller MD at [facility] Left: Hip [employer] [id number] 05/15/2029 [id number] / / [id number] [employer] Xl-739034 Active Articulation 40mm Bearing Hip Arcomxl Sterile 28mm Modular - [id number] Implanted:Qty: 1 on 04/06/2020 by Celso Mueller MD at [facility] Left: Hip [employer] [id number] 07/09/2024 XL-002812 / / [id number] [employer] [id number] Taperloc Microplasty 102.5mm Type 1 Hip 133d 9 High Offset Taper - [id number] Implanted:Qty: 1 on 04/06/2020 by Celso Mueller MD at [facility] Left: Hip [employer] [id number] 03/28/2029 51-092956 / / [id number] [employer] [id number] 28mm Modular Hip Standard Head Femoral Biolox Delta - [id number] Implanted:Qty: 1 on 04/06/2020 by Celso Mueller MD at [facility] Left: Hip [employer] 03/05/2029 12-484891 / / [id number] [address] Advance Directives For more information, please contact: [phone] * Full Code (Latest Code Status on File) Date Activated Date Inactivated Comments 04/06/2020 5:12 PM 04/07/2020 8:49 PM Care Teams Rug Cleaner Relationship Specialty Start Date End Date Myles Swann MD PCP - General Family Medicine 01/04/20 Patrick Agudelo MD [address] [facility] [address] [address] Referring Physician General Surgery 10/24/20
--- OUTSIDE RECORDS SUMMARY | 2025-03-16 14:03 | XMS_ITS | Clinical Summary ---
Author Organization [facility] Address Formerly [facility], [facility] [place] [address] Care Team Providers Care Licensed Physical Therapy Assistant Name Role Phone Myles Swann MD Primary Care Provider [phone] Allergies No known active allergies Social History [...] Vaccine (1 - 2023-2 5 season) 2024 DTaP, Tdap and Td Vaccines ( [...] 5 Years) and At-Risk Patients (6 to 49 Years) Aged Out No longer eligi ble based on patient's age to complete this topic RSV Immunizations Under 20 Months Aged Out No longer eligible based on patient's age [place] [address] [facility] Care Teams Licensed Physical Therapy Assistant Relationship Specialty Start Date End Date Myles Swann MD [address] [address] PCP - General FAMILY PRACTICE 05/11/22
== END 2025-03-16 12:31 | disposition home or self-care (01) ==
LOC: ANHCARD 12:31
PROVIDERS: PCP Family Medicine; Visit Provider Physician Assistant Medical
DX: R01.1 Cardiac murmur, unspecified (principal)
CPT/HCPCS: 93306

== ENCOUNTER 2025-07-01 13:17 | Outpatient (CLI) | payer OTHER, SELFPAY ==
--- OUTSIDE RECORDS SUMMARY | 2025-07-01 13:20 | XMS_ITS | Encounter Summary ---
Author Organization [facility] Address [address] [place] [address] Care Team Providers Care Balance Clerk Name Role Phone Myles Swann MD Primary Care Provider [phone] Reason for Visit * Reason Onset Date Comments Future Appointment 01/28/2023 Encounter Details Date Type Department Care Team (Late st Contact Info) Description 01/28/2023 Telephone [facility] [address] [place] [id number] Heri Shah MD [facility] [address] Future Appointment Social History Tobacco Use Types Packs/Day Years Used Date Smoking Tobacco: Never Smokeless Tobacco: Never Alcohol Use Standard Drinks/Week Comments Yes 0 (1 standard drink = 0.6 oz pur e alcohol) Socially Comments Unknown Sex and Gender Information Value Date Recorded Sex Assigned at Female 01/18/2023 11:38 AM AIRBRUSH PAINTER Legal Sex Female 4:13 AM AIRBRUSH PAINTER Gender Identity Female 01/18/2023 11:38 AM AIRBRUSH PAINTER Sexual Orientation Straight 01/18/2023 11 :38 AM AIRBRUSH PAINTER documented as of this encounter Functional Status [...] Instructed that we will look at scheduled. RUSH PAINTER * Telephone Encounter - Miguel Roper - 01/28/2023 4:23 PM CST Pt was bumped from 02/13 appt and needs a CT scan before her appt. Pt would like to know if she cankeep the CT on 02/13 and just schedule her appt or if the have to be on the same day. Please reach out to pt to reschedule. RUSH PAINTER documented in this encounter Plan of Treatment Not on file documented as of this encounter Visit Diagnoses Not on filedocumented in this encounter Care Teams Balance Clerk Relationship Specialty Start Date End Date Myles Swann MD [address] [place] [address] PCP - General Family Medicine 03/19/18 documented as of this encounter
--- OUTSIDE RECORDS SUMMARY | 2025-07-01 13:20 | XMS_ITS | Clinical Summary ---
Author Organization [facility] Address [address] [facility] [place] [place] [address] Care Team Providers Care Drop Machine Operator Name Role Phone Myles Swann MD Primary Care Provider [phone] Source Comments [facility],non-owned Affiliates and Associated Physician Practices is amultiple site organization consisting of ambulatory clinics and hospital sitesin [place], [place], [place] and [place]. This disclosure is being madepursuant to the Care Everywhere program and may not contain all information available regarding this patient. Last updated 18.[facility] Allergies No known active allergies Medications * [...] as needed for Muscle Spasms Active Biotin 59434 MCG Take 1 (one) tablet by mouth [...] (01/16/2023): Added automatically from request for surgery [id number] Elbow effusion, right 03/24/2018 Pelvic hematoma, female [...] Sex Assigned at Female 01/18/2023 11:38 AM EXPRESS CLERK Legal Sex Female 4:13 AM EXPRESS CLERK Gender Identity Female 01/18/2023 11:38 AM EXPRESS CLERK Sexual Orientation Straight 01/18/2023 11 :38 AM EXPRESS CLERK Last Filed Vital Signs Vital Sign Reading [...] 1:33 PM CDT Height 167.6 cm (5' 6) 02/18/2023 1:33 PM CDT Body Mass Index 49.95 02/18/2023 1:33 PM CDT Plan of Treatment Health Maintenance Due Date Last Done Comments LIPID TESTING 1981 MAMMOGRAM 1981 HEPATITIS C SCREENING 06/01/1999 HEPATITIS B VACCINE (1 of 3 - 19+ 3-dose series) 2000 PAP SMEAR 2002 HPV VACCINE (1 - 3-dose SCDM series) 2008 COVID-19 VACCINE (1 - season) 2024 DEPRESSION SCREENING 11/25/2024 INFLUENZA VACCINE (#1) 2025 SCREENING FOR DIABETES 01/16/2026 , 03/24/2018, [...] this topic Medical Devices Implanted Type Area Tester Operator Helper Device Identifier Shelf Expiration Date Model / Serial / Lot Escalon Sut Sqa+ Othcrd 2.8mm Ntnl Ndl Implanted:Qty: 1 on 03/18/2018 by Iona Buck MD at [facility] Left: Acetabulum [employer] 12/25/2020 [id number] / / [id number] 3.5 Cortical Screw Implanted:Qty: 1 on 03/18/2018 by Iona Buck MD at [facility] Left: Acetabulum 204.850 / / Plate 2 Hl Lopro Sprg Ss 3.5 Mm Screws Implanted:Qty: 2 on 03/18/2018 by Iona Buck MD at [facility] Left: Acetabulum Synthes Usa 02.100.302S / / Plate 65x10.2x2.7mm 5 Hl Lopro Recon Ss Implanted:Qty: 1 on 03/18/2018 by Iona Buck MD at [facility] Left: Acetabulum Synthes Usa 245.025 / / Plate Str 104mm 8 Hl Lopro Recon Ss 3.5 Implanted:Qty: 1 on 03/18/2018 by Iona Buck MD at [facility] Left: Acetabulum Synthes Usa 245.028 / / 3.5 Cortex Screw Implanted:Qty: 1 on 03/18/2018 by Iona Buck MD at [facility] Left: Acetabulum 204.820 / / Screw Bn 3.5mm 26mm Lcp Ss Carlos St Ns Sm Implanted:Qty: 1 on 03/18/2018 by Iona Buck MD at [facility] Left: Acetabulum Synthes Usa 204.826 / / Screw Bn 3.5mm 38mm Dcp Lc Dcp Ss Hum Implanted:Qty: 2 on 03/18/2018 by Iona Buck MD at [facility] Left: Acetabulum Synthes Usa 204.838 / / Screw Bn 3.5mm 28mm Dcp Lc Dcp Ss Hum Implanted:Qty: 1 on 03/18/2018 by Iona Buck MD at [facility] Left: Acetabulum Synthes Usa 204.828 / / Screw Bn 3.5mm 6mm 30mm Lc Dcp Dcp Ss Ft Implanted:Qty: 1 on 03/18/2018 by Iona Buck MD at [facility] Left: Acetabulum Synthes Usa 204.830 / / Screw Bn 3.5mm 6mm 32mm Lc Dcp Dcp Ss Ft Implanted:Qty: 1 on 03/18/2018 by Iona Buck MD at [facility] Left: Acetabulum Synthes Usa 204.832 / / 3.5 Cortical Screw Implanted:Qty: 3 on 03/18/2018 by Iona Buck MD at [facility] Left: Acetabulum 204.834 / / Screw 3.5mm 22mm 2.2mm Elb Carlos Nonlock Implanted:Qty: 1 on 03/20/2018 by Iona Buck MD at [facility] [employer] [id number] / / 3.5 Low Profile Screw Implanted:Qty: 1 on 03/20/2018 by Iona Buck MD at [facility] [employer] Inc [id number] / / Lateral Dis Hum Plate Implanted:Qty: 1 on 03/20/2018 by Iona Buck MD at [facility] [employer] [id number] / / Medial Distal Humerus Plates Implanted:Qty: 1 on 03/20/2018 by Iona Buck MD at [facility] [employer] [id number] / / Screw 2.7mm 26mm Ft Elb Carlos Hex Drv Implanted:Qty: 1 on 03/20/2018 by Iona Buck MD at [facility] [employer] [id number] / / Screw 3.5mm 20mm Ft Elb Carlos Nonlock Hex Implanted:Qty: 2 on 03/20/2018 by Iona Buck MD at [facility] [employer] [id number] / / Screw 3.5mm 22mm Tib Carlos Dist Nonlock Implanted:Qty: 1 on 03/20/2018 by Iona Buck MD at [facility] [employer] [id number] / / Screw 3.5mm 24mm Ft Elb Carlos Hex Drv Implanted:Qty: 2 on 03/20/2018 by Iona Buck MD at [facility] [employer] [id number] / / Screw 3.5mm 26mm 2.5mm Tib Carlos Dist Implanted:Qty: 1 on 03/20/2018 by Iona Buck MD at [facility] [employer] [id number] / / Screw 3.5mm 48mm Ft Elb Carlos Nonlock Hex Implanted:Qty: 1 on 03/20/2018 by Iona Buck MD at [facility] [employer] [id number] / / Screw 3.5mm 14mm T15 Tib Carlos Dist Lck Implanted:Qty: 1 on 03/20/2018 by Iona Buck MD at [facility] [employer] [id number] / / Screw 3.5mm 16mm T15 Tib Carlos Dist Lck Implanted:Qty: 2 on 03/20/2018 by Iona Buck MD at [facility] [employer] [id number] / / Screw 3.5mm 18mm T15 Tib Carlos Dist Lck Implanted:Qty: 1 on 03/20/2018 by Iona Buck MD at [facility] [employer] [id number] / / Screw 3.5mm 34mm Elb Carlos Lck Slf-Tap Implanted:Qty: 1 on 03/20/2018 by Iona Buck MD at [facility] [employer] [id number] / / Explanted Type Area Tester Operator Helper Device Identifier Shelf Expiration Date Model / Serial / Lot 3.5 Cortical Screw Explanted:Qty: 1 on 03/18/2018 at [facility] Left: Acetabulum 204.855 / / Screw Extfix 190mm 6mm Schnz Blnt Spd Ss Explanted:Qty: 1 on 03/18/2018 at [facility] Left: Acetabulum Synthes Usa 294.68 / / Screw Bn 3.5mm 6mm 44mm Dcp Lc Dcp Ss Ft Explanted:Qty: 1 on 03/18/2018 at [facility] Left: Acetabulum Synthes Usa 204.844 / / Screw Bn 3.5mm 6mm 46mm Dcp Lc Dcp Ss Ft Explanted:Qty: 1 on 03/18/2018 at [facility] Left: Acetabulum Synthes Usa 204.846 / / Wire K 1.6mm 6in Fem Tib Sm Frag Plate [facility]plant[facility]:Qty[facility] 85091[facility]2 / / Procedures Procedure Name Priority Date/Time Associated Diagnosis Comments COMPREHENSIVE METABOLIC PANEL Routine 01/16/2023 12:09 PM EXPRESS CLERK 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 Blood BLOOD SPECIMEN / Unknown Lab Venipuncture / Unknown 01/16/2023 12:09 PM EXPRESS CLERK 01/16/2023 12:45 PM EXPRESS CLERK Heri Shah MD LAB - CHEMI STRY ORDERABLES Final Result [facility] [address] [place] [address], [facility] [phone] * COMPREHENSIVE METABOLIC PANEL (01/16/2023 12:09 PM EXPRESS CLERK) Pathologist [facility] BUN 13 7 - 26 mg/dL 01/16/2023 1:23 PM [facility] Creatinine 0.80 0.56 - 0.96 mg/dL 01/16/2023 1:23 PM [facility] Sodium 139 136 - 145 mmol/L 01/16/2023 1:23 PM [facility] Potassium 3.5 3.5 - 4.5 mmol/L 01/16/2023 1:23 PM [facility] Chloride 101 98 - 107 mmol/L 01/16/2023 1:23 PM [facility] CO2 25 22 - 29 mmol/L 01/16/2023 1:23 PM [facility] Glucose 82 70 - 115 mg/dL 01/16/2023 1:23 PM [facility] Calcium 9.9 8.4 - 10.2 mg/dL 01/16/2023 1:23 PM [facility] Protein Total 7.8 6.0 - 8.3 g/dL 01/16/2023 1:23 PM [facility] Albumin 4.1 3.4 - 5.0 g/dL 01/16/2023 1:23 PM [facility] Bilirubin Total 0.4 0.2 - 1.2 mg/dL 01/16/2023 1:23 PM [facility] Alkaline Phosphatase 58 40 - 150 U/L 01/16/2023 1:23 PM [facility] ALT 17 5 - 55 U/L 01/16/2023 1:23 PM [facility] AST 15 5 - 34 U/L 01/16/2023 1:23 PM [facility] Anion Gap 17 8 - 18 01/16/2023 1:23 PM [facility] BUN/Creatinine Ratio 16 7 - 23 01/16/2023 1:23 PM [facility] Osmolality Calculated 287 270 - 300 mOsm/kg 01/16/2023 1:23 PM [facility] Albumin/Globulin Ratio 1.1 1.1 - 2.3 01/16/2023 1:23 PM [facility] eGFR by CKD-EPI >90 >=90 mL/min/1.7 3 m2 01/16/2023 1:23 PM [facility] Blood BLOOD SPECIMEN / Unknown Lab Venipuncture / Unknown 01/16/2023 12:09 PM [facility] 01/16/2023 12:50 PM [facility] Heri Shah MD LAB - CHEMI STRY ORDERABLES Final Result [facility] [address] [place] [address], [facility] [phone] from Last 3 Months or Most Recently Relevant to Health Maintenance [place] [address] AETNA AETNA AETNA AETNA AETNA [facility] [employer] Democrat Liability Advance Directives * Full Code (Latest Code Status on File) Date Activated Date Inactivated Comments 03/18/2018 5:59 PM 03/26/2018 1:22 PM * Full Code Date Activated Date Inactivated Comments 03/17/2018 4:06 AM 03/18/2018 5:59 PM Care Teams Drop Machine Operator Relationship Specialty Start Date End Date Myles Swann MD [address] [place] [address] PCP - General Family Medicine 03/19/18
--- OUTSIDE RECORDS SUMMARY | 2025-07-01 13:20 | XMS_ITS | Clinical Summary ---
Author Organization [facility] Address [facility] [place] [address] Care Team Providers Care Batch Heat Treat Operator Name Role Phone Myles Swann MD Primary Care Provider [phone] Allergies No known active allergies Social History [...] 7:21 PM CDT Height 162.6 cm (5' 4) 03/16/2018 7:21 PM CDT Body Mass Index 52.7 03/16/2018 7:21 PM CDT Plan of Treatment Health Maintenance Due Date Last Done Comments Cervical Cancer Screening Pa p Smear (Age 30 to 64) Every 3 Years 1981 Annual Physical 1984 Hepatitis C 1999 Hepatitis B Vaccines (1 of 3 - 19+ 3-dose series) 2000 HPV Vaccines (1 - 3-dose SCD M series) 2008 Cervical Cancer Screening Pa p with HPV Testing (Age 30 to 64) Every 5 Years 2011 Cervical Cancer Screening with HPV 2011 Mammogram Screening 2021 COVID-19 Vaccine (1 - 2023-2 5 season) 2024 DTaP, Tdap and Td Vaccines ( 2 - Td or Tdap) 03/16/2028 03/16/2018 Meningococcal B Vaccine Aged Out No l [...] patient's age to complete [place] [address] MEDICAL REIMBURSEMENTS OF TASIA [employer] Care Teams Batch Heat Treat Operator Relationship Specialty Start Date End Date Myles Swann MD [address] [place] [address] PCP - General FAMILY PRACTICE 05/11/22
--- OUTSIDE RECORDS SUMMARY | 2025-07-01 13:20 | XMS_ITS | Clinical Summary ---
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 02/09/2020 Overview (02/09/2020): Added automatically from request for surgery [id number] Closed fracture of multiple ribs of left [...] on file Legal Sex Female 3:25 AM DIRECTOR OF RELIGIOUS LIFE Gender Identity Female 03/16/2022 6:48 AM CDT Sexual Orientation Straight 03/16/2022 6: 48 AM CDT Obstetrics History Last Filed Vital Signs Vital Sign Reading Time Taken Comments Blood Pressure 127/84 11/16/2020 3:59 PM DIRECTOR OF RELIGIOUS LIFE Pulse 98 11/16/2020 3:59 PM DIRECTOR OF RELIGIOUS LIFE Temperature 36.6 C (97.8 F) 11/16/2020 3:59 PM DIRECTOR OF RELIGIOUS LIFE Respiratory Rate 20 11/08/2020 8:40 AM DIRECTOR OF RELIGIOUS LIFE Oxygen Saturation 95% 11/08/2020 8:40 AM DIRECTOR OF RELIGIOUS LIFE Inhaled Oxygen Concentration - - Weight 127.9 kg (282 lb) 11/16/2020 3:59 PM DIRECTOR OF RELIGIOUS LIFE Height 165.1 cm (5' 5) 11/16/2020 3:59 PM DIRECTOR OF RELIGIOUS LIFE Body Mass Index 46.93 11/16/2020 3:59 PM DIRECTOR OF RELIGIOUS LIFE Plan of Treatment Not on file Medical Devices Implanted Type Area Speech Coach Device Identifier Shelf Expiration Date Model / Serial / Lot [employer] [id number] 50mm Multihole Hip D Hemisphere Offset Shell Acetabular - [id number] Implanted:Qty: 1 on 04/06/2020 by Celso Mueller MD at [facility] Left: Hip [employer] [id number] 03/19/2029 [id number] / / [id number] [employer] [id number] Trilogy 6.5mm 30mm Self Tap Acetabular Cortical Screw Bone - [id number] Implanted:Qty: 1 on 04/06/2020 by Celso Mueller MD at [facility] Left: Hip [employer] [id number] 10/24/2029 [id number] / / [id number] [employer] [id number] Trilogy 6.5mm 25mm Self Tap Screw Bone - [id number] Implanted:Qty: 1 on 04/06/2020 by Celso Mueller MD at [facility] Left: Hip [employer] [id number] 03/24/2025 [id number] / / [id number] [employer] [id number] Trilogy 6.5mm 30mm Self Tap Acetabular Cortical Screw Bone - [id number] Implanted:Qty: 1 on 04/06/2020 by Celso Mueller MD at [facility] Left: Hip [employer] [id number] 10/24/2029 [id number] / / [id number] [employer] [id number] Trilogy 6.5mm 25mm Self Tap Screw Bone - [id number] Implanted:Qty: 1 on 04/06/2020 by Celso Mueller MD at [facility] Left: Hip [employer] [id number] 09/24/2029 [id number] / / [id number] [employer] [id number] [id number] 40mm 2 Mobility Hip D Liner Acetabular Cocr - [id number] Implanted:Qty: 1 on 04/06/2020 by Celso Mueller MD at [facility] Left: Hip [employer] [id number] 05/15/2029 [id number] / / [id number] [employer] [id number] Active Articulation 40mm Bearing Hip Arcomxl Sterile 28mm Modular - [id number] Implanted:Qty: 1 on 04/06/2020 by Celso Mueller MD at [facility] Left: Hip [employer] [id number] 07/09/2024 [id number] / / [id number] [employer] [id number] Taperloc Microplasty 102.5mm Type 1 Hip 133d 9 High Offset Taper - [id number] Implanted:Qty: 1 on 04/06/2020 by Celso Mueller MD at [facility] Left: Hip [employer] [id number] 03/28/2029 [id number] / / [id number] [employer] [id number] 28mm Modular Hip Standard Head Femoral Biolox Delta - [id number] Implanted:Qty: 1 on 04/06/2020 by Celso Mueller MD at [facility] Left: Hip [employer] 03/05/2029 [id number] / / [id number] Insurance O Advance Directives For more information, please contact: [phone] * Full Code (Latest Code Status on File) Date Activated Date Inactivated Comments 04/06/2020 5:12 PM 04/07/2020 8:49 PM Care Teams Sql Ssrs Developer Relationship Specialty Start Date End Date Myles Swann MD PCP - General Family Medicine 01/04/20 Patrick Agudelo MD [address] [address] Referring Physician General Surgery 10/24/20
--- OUTSIDE RECORDS SUMMARY | 2025-07-01 13:20 | XMS_ITS | Encounter Summary ---
Author Organization [facility] Address [address] [place] [address] Care Team Providers Care Campground Attendant Name Role Phone Myles Swann MD Primary Care Provider [phone] Reason for Visit * Reason Onset Date Comments MEDICATION REFILL 02/10/2024 Encounter Details Date Type Department Care Team (Late st Contact Info) Description 02/10/2024 Refill [facility] - Neurology [address] [place] [address] [place] [id number] Zoltan Arriaga MD [address] [place] [address] [place] [phone] MEDICATION REFILL Social History Tobacco Use Types Packs/Day Years Used Date Smoking Tobacco: Never Smokeless Tobacco: Never Alcohol Use Standard Drinks/Week Comments Yes 0 (1 standard drink = 0.6 oz pur e alcohol) Socially Comments Unknown Sex and Gender Information Value Date Recorded Sex Assigned at Female 01/18/2023 11:38 AM COMPUTER OPERATOR Legal Sex Female 4:13 AM COMPUTER OPERATOR Gender Identity Female 01/18/2023 11:38 AM COMPUTER OPERATOR Sexual Orientation Straight 01/18/2023 11 :38 AM COMPUTER OPERATOR documented as of this encounter Functional Status [...] unspecified documented in this encounter Care Teams Campground Attendant Relationship Specialty Start Date End Date Myles Swann MD [address] [place] [address] PCP - General Family Medicine 03/19/18 documented as of this encounter
== END 2025-07-01 13:18 | disposition home or self-care (01) ==
LOC: ANHAUDASC 13:17
PROVIDERS: PCP Family Medicine; Visit Provider Otolaryngology
DX: H92.02 Otalgia, left ear (principal); H90.11 Conductive hearing loss, unilateral, right ear, with unrestricted hearing on the contralateral side
CPT/HCPCS: 92557; 92567

== ENCOUNTER 2025-09-28 07:57 | Outpatient (CLI) | payer OTHER, SELFPAY ==
--- NOTE | ~2025-09-28 | XR_ITS ---
EXAMINATION: XR knee RT min 4V, 09/28/2025 8:02 CUSTOMER OPERATIONS SPECIALIST HISTORY: M25.561 - Pain in right knee COMPARISON: No comparisons available. Findings: No acute fracture or malalignment. Moderate to severe tricompartmental degenerative changes with small joint effusion Soft tissues unremarkable. Impression: No acute fracture or malalignment. Reviewed, dictated and finalized at location P. OMER OPERATIONS SPECIALIST Impression: No acute fracture or malalignment.
== END 2025-09-28 07:58 | disposition home or self-care (01) ==
LOC: MICIMG 07:58
PROVIDERS: PCP Family Medicine
DX: M25.561 Pain in right knee (principal)
CPT/HCPCS: 73564